=== PATIENT | female | born 1930 | race Caucasian/White ===

== ENCOUNTER 2016-08-08 15:04 | Emergency (ER) | payer MEDICARE ==
--- NOTE | 2016-08-08 15:33 | ERPHSYRPT ---
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 DENIES LOC, NECK PAIN, NUMBNESS, TINGLING OR WEAKNESS IN EXTREMITIES. PATIENT COMPLAINS OF BILATERAL KNEE PAIN WITH BRUISING. Occurred: just prior to arrival Reason for Fall: slipped Injuries/Pain Location: head, face, lower extremity Loss of Consciousness: no loss of consciousness Severity of Pain-Max: mild Severity of Pain-Current: mild Modifying Factors: Improves With: movement Associated Symptoms (Fall): extremity injury Allergies/Adverse Reactions: quinine [Quinine] Adverse Reaction (Mild, Verified 08/08/16 15:18) Nausea Home Medications: Acebutolol 200 mg [Sectral 200 MG] 200 mg PO BID 11/07/11 [History] Cetirizine HCl [Zyrtec] 10 mg PO DAILY 11/07/11 [History] Furosemide 20 mg [Lasix 20 mg] 20 mg PO DAILY 11/07/11 [History] Ranitidine HCl [zanTAC 150 MG TABLET] 150 mg PO BID 11/07/11 [History] Zolpidem Tartrate 10 mg [Ambien 10 MG] 10 mg PO HS PRN PRN 11/07/11 [History ] Albuterol 2.5 mg/3 ml Neb [Proventil 2.5 mg/3 ml Neb] 2 inh NEB BID [History] Alprazolam 0.25 mg [xanAX 0.25 MG] 0.25 mg PO Q4H PRN PRN 04/20/13 [ History] Aspirin 81 mg PO DAILY 04/20/13 [History] Ergocalciferol (Vitamin D2) [Vitamin D] 50,000 units PO WEEKLY 04/20/13 [History ] Fluoxetine HCl [Prozac] 20 mg PO DAILY 04/20/13 [History] Pravastatin Sodium 20 mg PO DAILY 04/20/13 [History] Tolterodine Tartrate [Detrol LA] 2 mg PO DAILY 04/20/13 [History] Warfarin Sodium [Coumadin] 6 mg PO DIRECTIONS UNKNOWN 04/20/13 [History] Alendronate Sodium 70 mg [Fosamax 70 MG] 1 tab PO WEEKLY 06/11/14 [History ] Potassium Chloride 10 Meq Tab* [Klor Con 10 MEQ] 10 meq PO BID 06/11/14 [ History] Warfarin Sodium 1 mg [Coumadin 1 MG] 5 mg PO DIRECTIONS UNKNOWN 06/11/14 [ History] Hx Tetanus, Diphtheria Vaccination/Date Given: Yes Hx Influenza Vaccination/Date Given: Yes Hx Pneumococcal Vaccination/Date Given: Yes Immunizations Up to Date: Yes - Review of Systems Constitutional: No Fever, No Chills Eyes: No Symptoms Ears, Nose, & Throat: No Symptoms Respiratory: No Symptoms, No Cough, No Dyspnea Cardiac: No Symptoms, No Chest Pain, No Edema, No Syncope Abdominal/Gastrointestinal: No Symptoms, No Abdominal Pain, No Nausea, No Vomiting, No Diarrhea Genitourinary Symptoms: No Symptoms, No Dysuria Musculoskeletal: Injury, Joint Pain, Joint Swelling, No Back Pain, No Neck Pain Skin: No Rash Neurological: No Dizziness, No Focal Weakness, No Sensory Changes Psychological: No Symptoms Endocrine: No Symptoms All Other Systems: Reviewed and Negative - Past Medical History Pertinent Past Medical History: Yes Neurological History: TIA ENT History: Cataracts Cardiac History: Congestive Heart Failure, High Cholesterol, Hypertension Respiratory History: COPD, Pulmonary Embolism Endocrine Medical History: Other Musculoskeletal History: Arthritis, Degenerative Disk Disease GI Medical History: GERD History: Other Psycho-Social History: Anxiety, Depression Female Reproductive Disorders: No Pertinent History Other Medical History: THYROID NODULES, URINARY INCONTINENCE - Past Surgical History Past Surgical History: Yes Neuro Surgical History: No Pertinent History Cardiac: No Pertinent History Respiratory: No Pertinent History Gastrointestinal: Cholecystectomy, Hernia Repair Genitourinary: No Pertinent History Musculoskeletal: Joint Replacement, Orthopedic Surgery Female Surgical History: No Pertinent History Other Surgical History: LOWER BACK, CONNIE FEET, CONNIE KNEES, CATARACT REMOVAL, TONSILLECTOMY - Social History Smoking Status: Never smoker Exposure to second hand smoke: No Drug Use: none Patient Lives Alone: Yes - Female History Hx Now: No - Nursing Vital Signs Nursing Vital Signs: Initial Vital Signs Temperature 97.6 F Temperature Source Oral Pulse Rate 80 Respiratory Rate 22 Blood Pressure [Left Arm] 148/77 Blood Pressure [Right Arm] 147/73 Pain Intensity 0 - [place] Coma Score Best Eye Response (Joyce): (4) open spontaneously Best Verbal Response ([place]): (5) oriented Best Motor Response (Joyce): (6) obeys commands [place] Total: 15 - Physical Exam General Appearance: no apparent distress, alert Head Injury: contusions, swelling, tenderness (2CM X 2.5CM LEFT SUPERIOR FOREHEAD SWELLING WITH SLIGHT ECCHYMOSIS) Eye Exam: PERRL/EOMI ENT Exam: airway nml Neck Exam: normal inspection, No tenderness Respiratory/Chest Exam: normal breath sounds, No chest tenderness, No respiratory distress Cardiovascular Exam: normal heart sounds, regular rate/rhythm Gastrointestinal Exam: soft, No tenderness, No distention, No guarding, No ecchymosis Back Exam: normal inspection, No vertebral tenderness Extremity Exam: normal range of motion, pelvis stable, swelling (BILATERAL KNEE TENDERNESS, RIGHT MEDIAL/LATERAL FEMORAL CONDYLE SWELLING AND ECCHYMOSIS, FROM WITH PAIN, LEFT KNEE ECCHYMOSIS WITH MINIMAL SWELLING OVER ECCHYMOSIS, BILAT PEDIS PULSES 2+), tenderness, No deformities Peripheral Pulses: carotid (R): 2+, carotid (L): 2+, femoral (R): 2+, femoral (L ): 2+, dorsalis-pedis (R): 2+, dorsalis-pedis (L): 2+ Neurologic Exam: alert, oriented x 3, cooperative, sensation nml, No motor deficits Skin Exam: normal color, warm, dry SpO2 Interpretation: normal SpO2: 95 Oxygen Delivery: Room Air - Radiology Exams Right Knee X-ray Interpretation: Discussed w/ radiologist (MILD OSTEOPENIA, TOTAL KNEE, ARTHROPLASTY WITH INTACT PROTHESIS, ARTICULATION, NO OTHER BONY, ARTICULAR, OR SOFT TISSUE ABNORMALITIES) Left Knee X-ray Interpretation: Interpreted by me (NO FRACTURE OR DISLOCATION, TOTAL KNEE PROSTHESIS INTACT) Right Ankle X-ray Interpretation: Discussed w/ radiologist (MILD OSTEOPENIA, NO FRACTURE OR DISLOCATION) - CT Exams Head CT Interpretation: Discussed w/radiologist (LEFT FRONTAL SCALP HEMATOMA, NO ACUTE INTRACRANIAL ABNORMALTIES OR FRACTURE) Maxillofacial Bones CT Interpretation: Discussed w/radiologist (LEFT FRONTAL SCALP HEMATOMA WITHOUT FRACTURE) Ordered Tests: Active Orders 24 hr Category Date Time Status ANKLE (3 VIEWS) Stat Exams 08/08/16 15:31 Completed FACIAL BONES WO CONTRAST [CT] Stat Exams 08/08/16 15:30 Completed HEAD WITHOUT CONTRAST [CT] Stat Exams 08/08/16 15:24 Completed KNEE (3 VIEWS) Stat Exams 08/08/16 15:31 Taken KNEE (3 VIEWS) Stat Exams 08/08/16 15:32 Completed BMP Stat Lab 08/08/16 15:33 Completed CBC W DIFF Stat Lab 08/08/16 15:33 Completed PT INR [PROTIME WITH INR] Stat Lab 08/08/16 15:36 Completed Lab/Rad Data: Laboratory Result Diagrams 08/08/16 15:33 08/08/16 15:33 Laboratory Results 08/08/16 08/08/16 08/08/16 Range/Units 15:36 15:33 15:33 WBC 6.4 (4.0-10.5) K/mm3 RBC 4.80 (4.1-5.4) M/mm3 Hgb 14.8 (12.0-16.0) gm/dl Hct 45.9 (35-47) % MCV 95.6 (78-100) fl MCH 30.8 (26-32) pg MCHC 32.2 (32-36) g/dl RDW 14.5 H (11.5-14.0) % Plt Count 311 (150-450) K/mm3 MPV 8.9 (6-9.5) fl Gran % 72.6 H (36.0-66.0) % Lymphocytes % 16.8 L (24.0-44.0) % Monocytes % 8.6 (0.0-12.0) % Eosinophils % 1.4 (0.00-5.0) % Basophils % 0.6 (0.0-0.4) % Basophils # 0.04 (0-0.4) INR 2.19 (0.8-3.0) Sodium 142 (136-145) mEq/L Potassium 4.3 (3.5-5.1) mEq/L Chloride 106 (98-107) mEq/L Carbon Dioxide 23.8 (21-32) mEq/L Anion Gap 16.0 H (5-15) MEQ/L BUN 22 H (9-20) mg/dL Creatinine 1.48 H (0.55-1.30) mg/dl Estimated GFR 36 ML/MIN Glucose 108 (70-110) MG/DL Calcium 8.9 (8.5-10.1) mg/dL - Progress Progress: pain not gone completely Counseled pt/family regarding: diagnosis, need for follow-up, rad results - Departure Time of Disposition: 17:07 Departure Disposition: Home Clinical Impression: FOREHEAD CONTUSION, BILATERAL KNEE CONTUSION Condition: Stable Critical Care Time: No Referrals: SYED HURLEY [Primary Care Provider] - Additional Instructions: FOLLOW HEAD INJURY INSTRUCTIONS. APPLY ICE OVER FOREHEAD AND KNEE SWELLING EVERY 4 HOURS, 30 MINUTES FOR 48 HOURS. TYLENOL EVERY 4 HOURS FOR PAIN DISCOMFORT.
[2016-08-08 15:52] LABS: BASOPHIL % 0.6 % (0.0-0.4); Eosinophil % 1.4 % (0.00-5.0); Granulocytes % 72.6 % (36.0-66.0); Lymphocytes % 16.8 % (24.0-44.0); Mean Cell Volume 95.6 fl (78-100); Mean Corpuscular Hemoglobin 30.8 pg (26-32); Mean Platelet Volume 8.9 fl (6-9.5); Monocytes % 8.6 % (0.0-12.0); Platelet Count 311 K/mm3 (150-450); Red Cell Distribution Width 14.5 % (11.5-14.0); White Blood Count 6.4 K/mm3 (4.0-10.5)
[2016-08-08 15:53] LABS: INR 2.19 (0.8-3.0)
[2016-08-08 15:55] LABS: Carbon Dioxide 23.8 mEq/L (21-32); Potassium 4.3 mEq/L (3.5-5.1)
--- NOTE | 2016-08-08 16:24 | XRAY ---
Indication: Left-sided injury following fall. Multiple contiguous axial images obtained through the facial bones. Sagittal and coronal reformatted images obtained. Comparison: None There are a few bilateral dental amalgams producing beam artifact limiting these levels. Small left frontal scalp hematoma. No acute fracture or suspicious bone lesions. Orbits including roof, arango, and floors intact. Remaining visualized noncontrasted soft tissues unremarkable. Paranasal sinuses are clear. Impression: Left frontal scalp hematoma. No acute facial bone fracture. CTDI 59.47
--- NOTE | 2016-08-08 16:27 | XRAY ---
Indication: Left-sided injury following fall. Multiple contiguous axial images obtained through the head without contrast. Comparison: None Minimal periventricular degenerative microischemia bilaterally. No acute intracranial hemorrhage, abnormal extra-axial fluid collection, or mass effect. Fourth ventricle is midline without hydrocephalus. Bony calvarium intact. Small left frontal scalp hematoma. Visualized paranasal sinuses and mastoid air cells are clear. Impression: Left frontal scalp hematoma. No acute intracranial abnormalities or fracture. Minimal degenerative microvascular ischemia within normal limits. CTDI 50.00
--- NOTE | 2016-08-08 16:30 | XRAY ---
Indication: Pain following fall. Comparison: None 3 views of the right ankle demonstrates mild osteopenia, mild midfoot degenerative changes, and tiny benign posterior soft tissue calcification in the lower leg. No other bony, articular, or soft tissue abnormalities.
--- NOTE | 2016-08-08 16:31 | XRAY ---
Indication: Pain following fall. Comparison: July 17, 2012. 3 views of the right knee again demonstrates mild osteopenia and total knee arthroplasty with intact prosthesis/articulation. No other bony, articular, or soft tissue abnormalities.
[2016-08-08 17:00] VITALS: BP 111/74; PULSE 77
[2016-08-08 17:04] VITALS: O2SAT 95
--- NOTE | 2016-08-14 11:48 | XRAY ---
Indication: Pain following fall. Comparison: April 20, 2013. 3 views of the left knee again demonstrates osteopenia, total knee arthroplasty with intact prosthesis/articulation, and tiny soft tissue calcification anterior to the tibial tuberosity. No new/acute findings.
== END 2016-08-08 17:17 | disposition home or self-care (01) ==
LOC: ED 15:04
DX: S00.83XA Contusion of other part of head, initial encounter (principal); S80.02XA Contusion of left knee, initial encounter; S80.01XA Contusion of right knee, initial encounter; W18.39XA Other fall on same level, initial encounter; Z79.899 Other long term (current) drug therapy; Z79.01 Long term (current) use of anticoagulants
CPT/HCPCS: 36415; 70450; 70486; 73562; 73610; 80048; 85025; 85610; 99284

== ENCOUNTER 2019-04-23 21:12 | Observation (INO) | payer MEDICARE ==
[2019-04-23] MEDS ORDERED: Zofran 4 MG/2 ML VIAL ONE ×2 (22:04→22:08)
[2019-04-23] MEDS ORDERED: Zofran 4 MG/2 ML VIAL IV ONE (22:04)
[2019-04-23] MEDS ORDERED: MORPHINE SULFATE 4 MG INJ IV ONE (22:08)
[2019-04-23] MEDS ORDERED: MORPHINE SULFATE 4 MG INJ ONE (22:13)
--- NOTE | 2019-04-23 22:18 | ERPHSYRPT ---
- History of Present Illness Time Seen by Provider: 04/23/19 21:50 Source: patient, EMS Patient Subjective Stated Complaint: pt states, "my right knee and and right thigh have been hurting today since 1300 and I got up once today and could hardly stand to get out of a chair, pain got worse throughout the day". Pt c/o Left arm hurting x6 days from shoulder to elbow". States, "its been popping alot lately". Triage Nursing Assessment: pt c/o rt knee pain, radiating up to rt hip. Started today around 1300, was unable to hardly bear any weight to stand up and pain has gotten worse throughout the day. Pt thinks swelling is worse that usual to the knee and down. Pt c/o lt shoulder pain down to the elbow x6 days as well. 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 He denies any fall or trauma. Pain is more muscular in the thigh. Patient reports swelling of the thigh and lower leg. She is concerned about getting another blood clot. Denies any fever or chills. She is also having left shoulder and arm pain for the last 1 week. Patient denies any chest pain palpitations or shortness of breath. No abdominal pain but has nausea because of pain. Patient reports generalized weakness and fatigue and is unable to ambulate. Occurred: this afternoon Quality: constant, sharpness Severity of Pain-Max: moderate Severity of Pain-Current: moderate Lower Extremities Pain: knee: right, thigh: right Modifying Factors: Improves With: movement Allergies/Adverse Reactions: quinine [Quinine] Adverse Reaction (Mild, Verified 04/23/19 21:33) Nausea Home Medications: Acebutolol 200 mg [Sectral 200 MG] 200 mg PO BID 11/07/11 [History] Furosemide 20 mg [Lasix 20 mg] 20 mg PO DAILY 11/07/11 [History] Ranitidine HCl [zanTAC 150 MG TABLET] 150 mg PO BID 11/07/11 [History] Zolpidem Tartrate 10 mg [Ambien 10 MG] 10 mg PO HS PRN PRN 11/07/11 [History ] Albuterol 2.5 mg/3 ml Neb [Proventil 2.5 mg/3 ml Neb] 2 inh NEB BID [History] Alprazolam 0.25 mg [xanAX 0.25 MG] 0.25 mg PO Q4H PRN PRN 04/20/13 [ History] Ergocalciferol (Vitamin D2) [Vitamin D] 50,000 units PO WEEKLY 04/20/13 [History ] Fluoxetine HCl [Prozac] 20 mg PO DAILY 04/20/13 [History] Pravastatin Sodium 20 mg PO DAILY 04/20/13 [History] Tolterodine Tartrate [Detrol LA] 2 mg PO DAILY 04/20/13 [History] Alendronate Sodium 70 mg [Fosamax 70 MG] 1 tab PO WEEKLY 06/11/14 [History ] Potassium Chloride 10 Meq Tab* [Klor Con 10 MEQ] 10 meq PO BID 06/11/14 [ History] Warfarin Sodium 1 mg [Coumadin 1 MG] 5 mg PO DAILY 06/11/14 [History] Hx Tetanus, Diphtheria Vaccination/Date Given: Yes Hx Influenza Vaccination/Date Given: Yes Hx Pneumococcal Vaccination/Date Given: Yes Immunizations Up to Date: Yes - Review of Systems Constitutional: No Symptoms Eyes: No Symptoms Ears, Nose, & Throat: No Symptoms Respiratory: No Symptoms Cardiac: No Symptoms Abdominal/Gastrointestinal: Nausea Genitourinary Symptoms: No Symptoms Musculoskeletal: Arthralgias, Myalgias Skin: No Symptoms Neurological: No Symptoms Psychological: No Symptoms Endocrine: No Symptoms Hematologic/Lymphatic: No Symptoms Immunological/Allergic: No Symptoms - Past Medical History Pertinent Past Medical History: Yes Neurological History: TIA ENT History: Cataracts Cardiac History: Congestive Heart Failure, High Cholesterol, Hypertension Respiratory History: COPD, Pulmonary Embolism Endocrine Medical History: Other Musculoskeletal History: Arthritis, Degenerative Disk Disease GI Medical History: GERD History: Other Psycho-Social History: Anxiety, Depression Female Reproductive Disorders: No Pertinent History Other Medical History: THYROID NODULES, URINARY INCONTINENCE - Past Surgical History Past Surgical History: Yes Neuro Surgical History: No Pertinent History Cardiac: No Pertinent History Respiratory: No Pertinent History Gastrointestinal: Cholecystectomy, Hernia Repair Genitourinary: No Pertinent History Musculoskeletal: Joint Replacement, Orthopedic Surgery Female Surgical History: No Pertinent History Other Surgical History: LOWER BACK, CONNIE FEET, CONNIE KNEES, CATARACT REMOVAL, TONSILLECTOMY - Social History Smoking Status: Never smoker Exposure to second hand smoke: No Drug Use: none Patient Lives Alone: Yes - Female History Hx Now: No - Nursing Vital Signs Nursing Vital Signs: Initial Vital Signs Temperature 96.6 F 04/23/19 21:18 Pulse Rate 79 04/23/19 21:18 Respiratory Rate 22 04/23/19 21:18 Blood Pressure 171/78 04/23/19 21:18 O2 Sat by Pulse Oximetry 97 04/23/19 21:18 Pain Scale Pain Intensity [Right Knee] 10 Pain Intensity 8 - Physical Exam General Appearance: mild distress Eyes, Ears, Nose, Throat Exam: normal ENT inspection Neck Exam: normal inspection Cardiovascular/Respiratory Exam: chest non-tender, normal breath sounds, regular rate/rhythm Gastrointestinal/Abdominal Exam: non-tender, soft, no organomegaly Back Exam: normal inspection, muscle spasm, No rash Hips Exam: bilateral: non-tender, normal inspection, normal range of motion Legs Exam: right leg: pain, soft tissue tenderness, swelling, left leg: non- tender, normal inspection, bilateral leg: no evidence of injury Knees Exam: right knee: bone tenderness, joint effusion, pain, soft tissue tenderness, swelling, left knee: non-tender, normal inspection, normal range of motion, bilateral knee: no evidence of injury Ankle Exam: right ankle: pain, soft tissue tenderness, swelling, bilateral ankle : non-tender, normal range of motion Neuro/Tendon Exam: normal sensation, normal motor functions Mental Status Exam: alert, oriented x 3, cooperative Skin Exam: normal color, warm SpO2 Interpretation: normal SpO2: 97 O2 Delivery: Room Air - Course Nursing assessment & vital signs reviewed: Yes EKG Interpreted by Me: RATE (77), NORMAL AXIS, Non-specific ST Changes Ordered Tests: Active Orders 24 hr Category Date Time Status S Iron Worker STAT Care 04/23/19 21:29 Active EKG-ER Only STAT Care 04/23/19 21:29 Active IV Insertion STAT Care 04/23/19 21:29 Active CHEST 1 VIEW (PORTABLE) Stat Exams 04/23/19 22:43 Taken HIP UNI (2V) INCL PEL IF DONE Stat Exams 04/23/19 23:56 Taken KNEE (3 VIEWS) Stat Exams 04/23/19 23:57 Taken VENOUS UNILAT/LIMITED EXTREMIT [US] Stat Exams 04/23/19 23:07 Taken CBC W DIFF Stat Lab 04/23/19 22:25 Completed CMP Stat Lab 04/23/19 22:25 Completed LIPASE Stat Lab 04/23/19 23:58 Received NT PRO BNP Stat Lab 04/23/19 22:25 Completed PROTIME WITH INR Stat Lab 04/23/19 22:25 Completed TROPONIN Q3H Lab 04/23/19 22:25 Completed TROPONIN Q3H Lab 04/24/19 01:15 Ordered TROPONIN Q3H Lab 04/24/19 04:15 Ordered TROPONIN Q3H Lab 04/24/19 07:15 Ordered TROPONIN Q3H Lab 04/24/19 10:15 Ordered Medication Summary Generic Name Dose Route Start Last Admin Trade Name Freq PRN Reason Stop Dose Admin Sodium Chloride 500 mls @ 500 mls/hr 04/24/19 00:02 Sodium Chloride 0.9% 500 Ml IV 04/24/19 01:01 .Q1H ONE Discontinued Medications Generic Name Dose Route Start Last Admin Trade Name Freq PRN Reason Stop Dose Admin Sodium Chloride Confirm 04/24/19 00:03 Sodium Chloride 0.9% 500 Ml Administered 04/24/19 00:04 Dose 500 mls @ ud IV .STK-MED ONE Morphine Sulfate 4 mg 04/23/19 22:08 04/23/19 22:18 Morphine Sulfate 4 Mg Inj IV 04/23/19 22:09 4 mg STAT ONE Administration Morphine Sulfate Confirm 04/23/19 22:13 Morphine Sulfate 4 Mg Inj Administered 04/23/19 22:14 Dose 4 mg .ROUTE .STK-MED ONE Morphine Sulfate 4 mg 04/24/19 00:01 Morphine Sulfate 4 Mg Inj IV 04/24/19 00:02 STAT ONE Morphine Sulfate Confirm 04/24/19 00:03 Morphine Sulfate 4 Mg Inj Administered 04/24/19 00:04 Dose 4 mg .ROUTE .STK-MED ONE Ondansetron HCl 4 mg 04/23/19 22:04 04/23/19 22:11 Zofran 4 Mg/2 Ml Vial IV 04/23/19 22:05 4 mg STAT ONE Administration Ondansetron HCl Confirm 04/23/19 22:04 Zofran 4 Mg/2 Ml Vial Administered 04/23/19 22:05 Dose 4 mg .ROUTE .STK-MED ONE Ondansetron HCl Confirm 04/23/19 22:08 Zofran 4 Mg/2 Ml Vial Administered 04/23/19 22:09 Dose 4 mg .ROUTE .STK-MED ONE Ondansetron HCl 4 mg 04/24/19 00:02 Zofran 4 Mg/2 Ml Vial IV 04/24/19 00:03 STAT ONE Ondansetron HCl Confirm 04/24/19 00:03 Zofran 4 Mg/2 Ml Vial Administered 04/24/19 00:04 Dose 4 mg .ROUTE .STK-MED ONE Lab/Rad Data: Laboratory Result Diagrams 04/23/19 22:25 04/23/19 22:25 Laboratory Results 04/23/19 04/23/19 04/23/19 Range/Units 22:25 22:25 22:25 WBC (4.0-10.5) K/mm3 RBC (4.1-5.4) M/mm3 Hgb (12.0-16.0) gm/dl Hct (35-47) % MCV (78-100) fl MCH (26-32) pg MCHC (32-36) g/dl RDW (11.5-14.0) % Plt Count (150-450) K/mm3 MPV (7.5-11.0) fl Gran % (36.0-66.0) % Eos # (Auto) (0-0.5) Absolute Lymphs (auto) (1.0-4.6) Absolute Monos (auto) (0.0-1.3) Lymphocytes % (24.0-44.0) % Monocytes % (0.0-12.0) % Eosinophils % (0.00-5.0) % Basophils % (0.0-0.4) % Absolute Granulocytes (1.4-6.9) Basophils # (0-0.4) PT 30.5 H (9.95-12.35) SECONDS INR 2.65 (0.8-3.0) Sodium 138 (137-145) mmol/L Potassium 4.3 (3.5-5.1) mmol/L Chloride 105 (98-107) mmol/L Carbon Dioxide 27 (22-30) mmol/L Anion Gap 10.3 (5-15) MEQ/L BUN 29 H (7-17) mg/dL Creatinine 1.45 H (0.52-1.04) mg/dL Estimated GFR 36.2 ML/MIN Glucose 138 H (74-106) mg/dL Calcium 9.2 (8.4-10.2) mg/dL Total Bilirubin 0.60 (0.2-1.3) mg/dL AST 22 (14-36) U/L ALT 14 (0-35) U/L Alkaline Phosphatase 113 (38-126) U/L Troponin I < 0.012 (0.000-0.034) ng/mL NT-Pro-B Natriuret Pep 89.4 (0-1800) pg/mL Serum Total Protein 6.7 (6.3-8.2) g/dL Albumin 3.8 (3.5-5.0) g/dL 04/23/19 Range/Units 22:25 WBC 8.1 (4.0-10.5) K/mm3 RBC 4.49 (4.1-5.4) M/mm3 Hgb 13.7 (12.0-16.0) gm/dl Hct 42.8 (35-47) % MCV 95.3 (78-100) fl MCH 30.5 (26-32) pg MCHC 32.0 (32-36) g/dl RDW 15.2 H (11.5-14.0) % Plt Count 250 (150-450) K/mm3 MPV 8.9 (7.5-11.0) fl Gran % 80.2 H (36.0-66.0) % Eos # (Auto) 0.08 (0-0.5) Absolute Lymphs (auto) 0.85 L (1.0-4.6) Absolute Monos (auto) 0.64 (0.0-1.3) Lymphocytes % 10.5 L (24.0-44.0) % Monocytes % 7.9 (0.0-12.0) % Eosinophils % 1.0 (0.00-5.0) % Basophils % 0.4 (0.0-0.4) % Absolute Granulocytes 6.47 (1.4-6.9) Basophils # 0.03 (0-0.4) PT (9.95-12.35) SECONDS INR (0.8-3.0) Sodium (137-145) mmol/L Potassium (3.5-5.1) mmol/L Chloride (98-107) mmol/L Carbon Dioxide (22-30) mmol/L Anion Gap (5-15) MEQ/L BUN (7-17) mg/dL Creatinine (0.52-1.04) mg/dL Estimated GFR ML/MIN Glucose (74-106) mg/dL Calcium (8.4-10.2) mg/dL Total Bilirubin (0.2-1.3) mg/dL AST (14-36) U/L ALT (0-35) U/L Alkaline Phosphatase (38-126) U/L Troponin I (0.000-0.034) ng/mL NT-Pro-B Natriuret Pep (0-1800) pg/mL Serum Total Protein (6.3-8.2) g/dL Albumin (3.5-5.0) g/dL - Progress Progress: improved, pain not gone completely, re-examined Progress Note: 04/24/19 00:07 88 years old is evaluated for right knee and leg pain. She is given pain medication and Zofran. Ultrasound did not show any obvious blood clot/DVT and INR is therapeutic. I have obtained x-rays which did not show any fracture dislocation of the knee joint/hardware. She is able to move her leg better after pain medication. EKG did not show any acute ischemic changes and unremarkable work-up including troponin. Chest x-ray with no focal pneumonia. Patient is not in any distress on reevaluation. Patient lives by herself and is unable to ambulate because of pain and generalized weakness. Discussed with Dr. Millard and patient is being admitted for observation. Discussed with : Emmett Will see patient in: hospital (observation) Counseled pt/family regarding: lab results, diagnosis, need for follow-up, rad results - Departure Departure Disposition: Home Clinical Impression: General weakness Lower extremity pain Qualifiers: Laterality: right Qualified Code(s): M79.604 - Pain in right leg Condition: Stable Critical Care Time: No Critical Care Time(excluding separately billable procedures): Critical 30-74 mins Referrals: SYED HURLEY [Primary Care Provider] -
[2019-04-23 22:31] LABS: Absolute Neutrophil Ct (ANC) 6.47 (1.4-6.9); BASOPHIL % 0.4 % (0.0-0.4); Basophil (Absolute #) 0.03 (0-0.4); Eosinophil (Absolute #) 0.08 (0-0.5); Hematocrit 42.8 % (35-47); Hemoglobin 13.7 gm/dl (12.0-16.0); Lymphocyte (Absolute #) 0.85 (1.0-4.6); Lymphocytes % 10.5 % (24.0-44.0); Mean Cell Volume 95.3 fl (78-100); Mean Corpuscular Hemoglobin 30.5 pg (26-32); Mean Platelet Volume 8.9 fl (7.5-11.0); Monocyte (Absolute #) 0.64 (0.0-1.3); Monocytes % 7.9 % (0.0-12.0); Neutrophil % 80.2 % (36.0-66.0); Platelet Count 250 K/mm3 (150-450); Red Blood Count 4.49 M/mm3 (4.1-5.4); Red Cell Distribution Width 15.2 % (11.5-14.0); White Blood Count 8.1 K/mm3 (4.0-10.5)
[2019-04-23 22:37] LABS: INR 2.65 (0.8-3.0); PROTIME 30.5 SECONDS (9.95-12.35)
[2019-04-23 22:50] LABS: ALBUMIN 3.8 g/dL (3.5-5.0); ANION GAP 10.3 MEQ/L (5-15); BILIRUBIN,TOTAL 0.6 mg/dL (0.2-1.3); Calcium 9.2 mg/dL (8.4-10.2); Creatinine 1 1.45 mg/dL (0.52-1.04); NT PRO BNP 89.4 pg/mL (0-1800); Potassium 4.3 mmol/L (3.5-5.1); Total Protein 6.7 g/dL (6.3-8.2)
[2019-04-24] MEDS ORDERED: MORPHINE SULFATE 4 MG INJ IV ONE (00:01)
[2019-04-24] MEDS ORDERED: Sodium Chloride 0.9% 500 ML 500 ML IV ONE ×2 (00:02→00:03)
[2019-04-24] MEDS ORDERED: Zofran 4 MG/2 ML VIAL IV ONE (00:02)
[2019-04-24] MEDS ORDERED: Zofran 4 MG/2 ML VIAL ONE (00:03)
[2019-04-24] MEDS ORDERED: MORPHINE SULFATE 4 MG INJ ONE ×2 (00:03→06:42)
[2019-04-24] MEDS ORDERED: Zofran 4 MG/2 ML VIAL IV PRN (00:37)
[2019-04-24] MEDS ORDERED: HUMALOG SQ PRN (00:37)
[2019-04-24 05:13] LABS: BASOPHIL % 0.3 % (0.0-0.4); Basophil (Absolute #) 0.03 (0-0.4); Eosinophil (Absolute #) 0 (0-0.5); Hematocrit 41.5 % (35-47); Lymphocyte (Absolute #) 0.58 (1.0-4.6); Lymphocytes % 6.8 % (24.0-44.0); Mean Cell Volume 96.7 fl (78-100); Mean Corpuscular Hemoglobin 30.3 pg (26-32); Mean Corpuscular Hgb Concent. 31.3 g/dl (32-36); Mean Platelet Volume 9.1 fl (7.5-11.0); Monocyte (Absolute #) 0.67 (0.0-1.3); Monocytes % 7.8 % (0.0-12.0); Neutrophil % 85.1 % (36.0-66.0); Platelet Count 248 K/mm3 (150-450); Red Blood Count 4.29 M/mm3 (4.1-5.4); Red Cell Distribution Width 15.1 % (11.5-14.0); White Blood Count 8.6 K/mm3 (4.0-10.5)
[2019-04-24 05:18] LABS: ALBUMIN 3.6 g/dL (3.5-5.0); ANION GAP 8.5 MEQ/L (5-15); BILIRUBIN,TOTAL 0.5 mg/dL (0.2-1.3); Calcium 8.7 mg/dL (8.4-10.2); Creatinine 1 1.32 mg/dL (0.52-1.04); Potassium 4.4 mmol/L (3.5-5.1); Total Protein 6.3 g/dL (6.3-8.2)
[2019-04-24] MEDS ORDERED: MORPHINE SULFATE 4 MG INJ IV PRN (06:39)
[2019-04-24] MEDS ORDERED: TYLENOL 325 MG PO PRN (07:10)
[2019-04-24] MEDS ORDERED: NORCO 5/325 MG PO PRN (08:35)
--- NOTE | 2019-04-24 09:30 | HP ---
HISTORY OF PRESENT ILLNESS: This is an 88 year-old patient of mine who presented to the emergency department via ambulance with the fire department. She reports that she had some left shoulder pain for the past few days. She denies any falls. She reports she sleeps in her recliner which she likes to do but has to reach out to turn the heat up or down and has to stretch her arm quite a ways to do this. She reports she was having right knee pain and trouble getting up out of her chair with weakness and trouble standing. She usually uses a four-prong cane in her apartment, a walker when she comes out to the doctor's office and has a scooter that she uses to go get groceries when the weather is good. She reports she had some nausea last night in the hospital and vomiting. She had not had any at home. She was not sure if this was due to having the pain medicine. She has been getting morphine for her right knee and right hip pain. REVIEW OF SYSTEMS: She reports some dyspnea but said it is better. Vomiting here. No diarrhea. No constipation. No chest pain. No rashes. She reports some swelling above her right knee. MEDICATIONS: Please see the home medication reconciliation list which I reviewed. ALLERGIES: QUININE. PAST MEDICAL HISTORY: Congestive heart failure. She sees Dr. Lee. Chronic obstructive pulmonary disease. Thyroid nodule. History of pulmonary embolism in 2012. Deep venous thrombosis in 2012. History of transient ischemic attack, right thoracic outlet syndrome, hiatal hernia, back pain, osteoarthritis bilaterally of her lower extremities, cyst on her ovaries, seasonal allergies, stage III chronic kidney disease for which she sees Dr. Rubi for. PAST SURGICAL HISTORY: Back surgery. Cholecystectomy. Eye surgery. Both knees replaced. Surgery on both feet. Umbilical hernia repair. Thyroid surgery. Tonsillectomy. Colonoscopy 2009. SOCIAL HISTORY: She lives alone in the [facility]. She has a sister that helps with her care and has home health. PHYSICAL EXAMINATION: VITAL SIGNS: Temperature current 97.8F, temperature max 98.0F, heart rate 80, respiratory rate 20, blood pressure 140/68. Oxygen saturation 96% on 2 liters nasal cannula. GENERAL: The patient is a pleasant talkative lady lying in bed in no acute distress. She is morbidly obese. CVS: Heart has a regular rate and rhythm. No murmurs, gallops or rubs. CHEST: Clear to auscultation bilaterally. No crackles or wheezes. ABDOMEN: Obese, soft, nontender, nondistended with normal bowel sounds. EXTREMITIES: She has some mild swelling around her right knee with a well healed scar. Subjective tenderness superiorly. No clubbing, cyanosis or edema of her lower legs. SKIN: Warm, dry and intact. LABORATORY DATA AND TESTS: CBC within normal limits. Creatinine 1.3. Serial troponins have been negative. X-rays were taken. I do not have formal reports on all of those as yet. Per the emergency room doctor's report, the venous Doppler study was negative and no acute fractures. ASSESSMENT AND PLAN: 1) RIGHT KNEE PAIN WITH WEAKNESS: We will ask for PT to assess her and try to get her up to a chair to see if she is safe to return home or if she needs rehab somewhere. 2) LEFT SHOULDER PAIN: Most likely due to some tendonitis due to trying to reach for the heater. Will try to change her from IV morphine to pain medication by mouth. 3) HISTORY OF PULMONARY EMBOLISM: Will continue with her anticoagulation and check daily international normalized ratio. 4) GAIT INSTABILITY WITH WEAKNESS: Again, will have PT see her. 5) CONGESTIVE HEART FAILURE: Currently stable on her home medication. 6) HYPERTENSION: Currently stable on her home medication.
[2019-04-24] MEDS ORDERED: Miralax Powder 17GM PACKET PO PRN (10:46)
[2019-04-24] MEDS ORDERED: Ambien 10 MG PO PRN (10:46)
[2019-04-24] MEDS ORDERED: VENTOLIN COMMON CANISTER IH PRN (10:46)
[2019-04-24] MEDS ORDERED: SECTRAL 200 MG PO SCH (11:00)
[2019-04-24] MEDS ORDERED: xanAX 0.5 MG PO PRN (11:00)
[2019-04-24] MEDS ORDERED: NITRO-DUR 0.2 MG/HR TD SCH (11:00)
[2019-04-24] MEDS ORDERED: Colace 100 MG PO SCH (11:00)
[2019-04-24] MEDS ORDERED: VITAMIN D2 PO SCH (11:00)
[2019-04-24] MEDS ORDERED: LASIX 20 MG PO SCH (11:00)
[2019-04-24] MEDS ORDERED: Pepcid 20 MG PO SCH (11:15)
[2019-04-24] MEDS ORDERED: Ditropan XL 5 MG PO SCH (11:15)
[2019-04-24] MEDS ORDERED: MEDICATION INTERVENTION MC SCH (11:15)
[2019-04-24] MEDS ORDERED: Prozac 20 MG PO SCH (11:30)
[2019-04-24] MEDS ORDERED: CLARITIN 10 MG PO SCH (12:00)
--- NOTE | 2019-04-24 14:51 | XRAY ---
Exam: AP upright portable chest film from 04/23/2019. Comparison: Two-view chest from 01/25/2013. Indication: Arm pain, vomiting. Findings: The transverse heart size appears within normal limits. There is moderate tortuosity of the descending thoracic aorta representing no change. Mild chronic central bronchial wall thickening is seen. The remainder the tuan and mediastinal structures appears unremarkable. The lungs are adequately inflated. There is some mild linear scarring at the right lung base. No air space infiltrates, vascular congestion, pneumothorax, or pleural fluid is seen. No acute osseous process is seen. Impression: 1. There appears to be some central bronchial wall thickening and perhaps minimal linear scarring at the right lung base. 2. No infiltrates or other acute cardiopulmonary disease is seen.
--- NOTE | 2019-04-24 15:01 | XRAY ---
Exam: Doppler venous ultrasound examination of the right lower extremity from 04/23/2019. Indication: Right thigh/knee pain and edema. Findings: The examination of the deep veins of the right lower extremity was carried out in the usual manner with color flow images, grayscale images, and Doppler tracings. Normal transducer compression, color flow, and Doppler signal augmentation is seen within registered representative segments of the right common femoral vein, superficial femoral vein, profunda femoral vein, popliteal vein, tibial/peroneal trunk, and distal posterior tibial veins. No evidence of DVT is seen. Normal compression of the greater saphenous pain is seen with transducer compression. In addition, the technologist believed there was a complex area of increased echogenicity within the proximal to mid thigh which she thought was a hematoma. This is poorly seen. She describes it as posterior to the femoral vessels. This did not connect with the adjacent vessels with real-time scanning. The study was hampered by the patient's large size. Impression: 1. No sonographic or Doppler evidence of deep venous thrombosis within the right lower extremity is seen. 2. Incompletely evaluated complex area noted within the proximal to mid right thigh is believed to probably relate to a hematoma. This is separate from the femoral vessels. Assessment is limited due to the patient's large size.
--- NOTE | 2019-04-24 15:05 | XRAY ---
Exam: Right hip films including the pelvis from 04/23/2019. Indication: Right hip pain, rule out fracture, no known injury. Findings: 2 AP films of the pelvis and coned-down AP and oblique films of the right hip were obtained. Multilevel advanced degenerative disc disease is seen within the visualized lower lumbar spine. The pelvis reveals no fracture or dislocation. The urinary bladder is full. The right hip reveals no acute fracture or dislocation. The hip joint spaces reveal only minimal narrowing. Some cortical thickening is seen along the medial aspect of the proximal right femoral shaft. This appears chronic. Impression: 1. No acute fracture or dislocation is seen within the pelvis or right hip. 2. Multilevel advanced degenerative disc disease is seen at the visualized lower 4 lumbar interspace levels.
--- NOTE | 2019-04-24 15:09 | XRAY ---
Exam: 3 views of the right knee from 04/23/2019. Comparison: Right knee films from 08/08/2016. Indication: Right knee pain, no known injury, prior right knee joint replacement in 1982. Findings: AP, shallow oblique, and crosstable lateral views of the right knee were obtained. I again see evidence of a right knee joint replacement. Prosthetic components adjacent to the distal right femur and proximal right tibia appear unremarkable. No prosthesis loosening is seen. There is a small chronic spur at the superior posterior margin of the right patella. Incidentally, there is a fairly large suprapatellar joint effusion/hemarthrosis on the crosstable lateral view. No fracture or dislocation is seen. Correlate clinically. Impression: 1. Status post right knee arthroplasty representing no change from 08/08/2016. I see no evidence of prosthesis loosening. 2. There is no acute right knee fracture or dislocation. 3. However, the crosstable lateral view reveals a moderately large suprapatellar joint effusion/hemarthrosis. Correlate clinically. This is new from 08/08/2016.
[2019-04-24 15:31] VITALS: BP 124/70; PULSE 72; O2SAT 97
--- NOTE | 2019-04-24 15:57 | PCM.DCORD ---
- Discharge Discharge Date: 04/24/19 Disposition: DC TO [facility] Condition: Fair Prescriptions: New Alprazolam 0.5 mg PO TID PRN #90 tablet PRN Reason: Anxiety Hydrocodone/Acetaminophen [Hydrocodone-Acetamin 5-325 mg] 1 each PO Q4H PRN # 35 tablet MDD 6 PRN Reason: Pain Acetaminophen 325 mg [Tylenol 325 mg] 650 mg PO Q4H PRN PRN tablet PRN Reason: Pain And/Or Fever Continue Docusate Sodium 100 mg [Colace 100 MG] 100 mg PO BID #0 capsule Ranitidine HCl [zanTAC 150 MG TABLET] 150 mg PO BID Acebutolol 200 mg [Sectral 200 MG] 200 mg PO BID Furosemide 20 mg [Lasix 20 mg] 20 mg PO DAILY Fluoxetine HCl [Prozac] 20 mg PO DAILY Tolterodine Tartrate [Detrol LA] 2 mg PO DAILY Pravastatin Sodium 20 mg PO HS Warfarin Sodium 1 mg [Coumadin 1 MG] 5 mg PO DAILY Alendronate Sodium 70 mg [Fosamax 70 MG] 1 tab PO WEEKLY Albuterol Common Canister [Ventolin Common Canister] 2 puff IH Q4HPRN PRN PRN Reason: Shortness Of Breath Calcifediol [Rayaldee] 30 mcg PO DAILY Polyethylene Glycol 3350 17 gm [Miralax Powder 17GM PACKET] 17 gm PO DAILY PRN PRN PRN Reason: Constipation Nitroglycerin 0.2 mg/Hr [Nitro-Dur 0.2 mg/Hr] 0.2 mg TD DAILY Fluticasone Propionate [Flonase NASAL] 1 spray NS DAILY Fexofenadine HCl 180 mg PO DAILY Fluoxetine HCl 40 mg PO DAILY Zolpidem Tartrate 10 mg [Ambien 10 MG] 10 mg PO HS PRN PRN 30 Days tablet PRN Reason: Insomnia Discontinued Alprazolam 0.5 mg [xanAX 0.5 MG] 0.5 mg PO TIDPRN Additional Instructions: Ice to knee for 20 minutes at a time 3 times a day if patient would like; PT/OT to evaluate and treat. Follow up with: SYED HURLEY [Primary Care Provider] - 1 Week
[2019-04-24] MEDS ORDERED: Coumadin 5 MG PO SCH (18:00)
[2019-04-24] MEDS ORDERED: ZOCOR 20MG PO SCH (22:00)
[2019-04-24] MEDS ORDERED: NON-FORMULARY ITEM (Pravastatin Sodium [Pravastatin Sodium] 20 MG) PO SCH (22:00)
[2019-04-24] MEDS ORDERED: RANITIDINE HCL 150 MG PO SCH (22:00)
[2019-04-25] MEDS ORDERED: TOLTERODINE TARTRATE 2 MG PO SCH (10:00)
[2019-04-25] MEDS ORDERED: Coumadin 1 MG PO SCH (10:00)
[2019-04-25] MEDS ORDERED: Flonase NASAL NS SCH (10:00)
[2019-04-29] MEDS ORDERED: Fosamax 70 MG PO SCH (06:00)
== END 2019-04-24 16:45 ==
LOC: ED 21:12 → MED SURG 04-24 00:25
PROVIDERS: ADMIT Internal Medicine; ATTEND Internal Medicine
DX: M25.561 Pain in right knee (principal); M25.512 Pain in left shoulder; M25.551 Pain in right hip; J44.9 Chronic obstructive pulmonary disease, unspecified; I13.0 Hypertensive heart and chronic kidney disease with heart failure and stage 1 through stage 4 chronic kidney disease, or unspecified chronic kidney disease; N18.3 Chronic kidney disease, stage 3 (moderate); I50.9 Heart failure, unspecified; R53.1 Weakness; Z86.711 Personal history of pulmonary embolism; R26.81 Unsteadiness on feet; Z79.01 Long term (current) use of anticoagulants; Z79.899 Other long term (current) drug therapy; Z86.73 Personal history of transient ischemic attack (TIA), and cerebral infarction without residual deficits
CPT/HCPCS: 36000; 36415; 71045; 73502; 73562; 80053; 82962; 83036; 83690; 83880; 84484; 85025; 85610; 93005; 93041; 93971; 94762; 96374; 96375; 96376; 97161; 99284; 99291; G0378; J2270; J2405; A9270-GY

== ENCOUNTER 2019-12-06 19:53 | Observation (INO) | payer MEDICARE ==
--- NOTE | 2019-12-06 20:06 | ERPHSYRPT ---
- History of Present Illness Time Seen by Provider: 12/06/19 20:00 Source: patient, EMS Exam Limitations: no limitations Physician History: 89 yr old female fell 2 weeks ago with pain left hip at that time now resolved but now has pain right hip and knee without additional trauma and unable to bear weight. also notes bilaterla leg swelling and right LE has area of erythema. Hx DVT/PE on AC last INR 2.[address] Man who referred her her. No head injury or trauma to head or headaches. Now full ROM on left without pain. abd soft nontender without peritoneal signs , chest nontender. neuro vasc intact distally and neuro exam normal Method of Injury: fell Occurred: days ago Quality: constant Severity of Pain-Max: moderate Severity of Pain-Current: moderate Lower Extremities Pain: hip: right, knee: right Modifying Factors: Improves With: immobilization, movement Associated Symptoms: unable to bear weight Allergies/Adverse Reactions: quinine [Quinine] Adverse Reaction (Mild, Verified 12/06/19 20:06) Nausea back pain Home Medications: Acebutolol 200 mg [Sectral 200 MG] 200 mg PO BID 11/07/11 [History] Furosemide 20 mg [Lasix 20 mg] 20 mg PO DAILY 11/07/11 [History] Fluoxetine HCl [Prozac] 20 mg PO DAILY 04/20/13 [History] Pravastatin Sodium 20 mg PO HS 04/20/13 [History] Tolterodine Tartrate [Detrol LA] 2 mg PO DAILY 04/20/13 [History] Alendronate Sodium 70 mg [Fosamax 70 MG] 1 tab PO WEEKLY 06/11/14 [History] Warfarin Sodium 1 mg [Coumadin 1 MG] 5 mg PO DAILY 06/11/14 [History] Albuterol Common Canister [Ventolin Common Canister] 2 puff IH Q4HPRN PRN 04/24/19 [History] Calcifediol [Rayaldee] 30 mcg PO DAILY 04/24/19 [History] Fexofenadine HCl 180 mg PO DAILY 04/24/19 [History] Fluoxetine HCl 40 mg PO DAILY 04/24/19 [History] Fluticasone Propionate [Flonase NASAL] 1 spray NS DAILY 04/24/19 [History] Nitroglycerin 0.2 mg/Hr [Nitro-Dur 0.2 mg/Hr] 0.2 mg TD DAILY 04/24/19 [History] Polyethylene Glycol 3350 17 gm [Miralax Powder 17GM PACKET] 17 gm PO DAILY PRN PRN 04/24/19 [History] Ascorbic Acid [Vitamin C with Shanita Hips] 1 ea DAILY 12/06/19 [History] Calcium No.1/D3/B6/FA/B12/Aloe [Vitamin D3-Aloe 1,000 Unit Tab] 1 ea DAILY 12/06/19 [History] Mv,Calcium,Min/Iron/Folic/Vitk [Multi For Her Tablet] 1 ea DAILY 12/06/19 [Hist ory] PANTOPRAZOLE 40 mg Tablet [Protonix 40MG Tablet] 1 ea DAILY 12/06/19 [History] Simethicone 80 mg [Mylicon 80MG] 1 ea BID 12/06/19 [History] Hx Tetanus, Diphtheria Vaccination/Date Given: Yes Hx Influenza Vaccination/Date Given: Yes Hx Pneumococcal Vaccination/Date Given: Yes - Review of Systems Constitutional: No Fever, No Chills Eyes: No Symptoms Ears, Nose, & Throat: No Symptoms Respiratory: No Cough, No Dyspnea Cardiac: No Chest Pain, No Edema, No Syncope Abdominal/Gastrointestinal: No Abdominal Pain, No Nausea, No Vomiting, No Diarrh ea Genitourinary Symptoms: No Dysuria Musculoskeletal: Back Pain, Fall, Injury, No Neck Pain Skin: Other (erythema right lower leg), No Rash Neurological: No Dizziness, No Focal Weakness, No Sensory Changes Psychological: No Symptoms Endocrine: No Symptoms Hematologic/Lymphatic: Other (on coumaden) Immunological/Allergic: No Symptoms All Other Systems: Reviewed and Negative - Past Medical History Pertinent Past Medical History: Yes Neurological History: TIA ENT History: Cataracts Cardiac History: Congestive Heart Failure, High Cholesterol, Hypertension Respiratory History: COPD, Pulmonary Embolism Endocrine Medical History: Other Musculoskeletal History: Arthritis, Degenerative Disk Disease GI Medical History: GERD History: Other Psycho-Social History: Anxiety, Depression Female Reproductive Disorders: No Pertinent History Other Medical History: THYROID NODULES, URINARY INCONTINENCE - Past Surgical History Past Surgical History: Yes Neuro Surgical History: No Pertinent History Cardiac: No Pertinent History Respiratory: No Pertinent History Gastrointestinal: No Pertinent History, Hemorrhoidectomy Genitourinary: No Pertinent History Musculoskeletal: No Pertinent History Female Surgical History: No Pertinent History Other Surgical History: LOWER BACK, CONNIE FEET, CONNIE KNEES, CATARACT REMOVAL, TONSILLECTOMY - Social History Smoking Status: Never smoker Exposure to second hand smoke: No Drug Use: none Patient Lives Alone: Yes - Nursing Vital Signs Nursing Vital Signs: Initial Vital Signs Temperature 98.2 F 12/06/19 19:54 Pulse Rate 86 12/06/19 19:54 Respiratory Rate 24 12/06/19 19:54 Blood Pressure 136/67 12/06/19 19:54 O2 Sat by Pulse Oximetry 95 12/06/19 19:54 Pain Scale Pain Intensity 9 - Physical Exam General Appearance: alert Eyes, Ears, Nose, Throat Exam: moist mucous membranes Neck Exam: non-tender, supple Cardiovascular/Respiratory Exam: chest non-tender, normal breath sounds, regular rate/rhythm, no respiratory distress Gastrointestinal/Abdominal Exam: non-tender, guarding Back Exam: normal inspection, No vertebral tenderness Hips Exam: right: limited range of motion, pain, soft tissue tenderness, left: non-tender, normal inspection, normal range of motion, no evidence of injury Legs Exam: right leg: other (distal erythema), bilateral leg: non-tender, normal inspection, normal range of motion, no evidence of injury Knees Exam: right knee: bone tenderness, pain, soft tissue tenderness, left knee: non-tender, normal inspection, normal range of motion, no evidence of injury Ankle Exam: bilateral ankle: non-tender, normal inspection, normal range of motion, no evidence of injury Foot Exam: bilateral foot: non-tender, normal inspection, normal range of motion, no evidence of injury DTR - Lower Extremities Exam: knee (R): 2+, knee (L): 2+, ankle (R): 2+, ankle (L): 2+ Neuro/Tendon Exam: normal sensation, normal motor functions Mental Status Exam: alert, oriented x 3, cooperative Skin Exam: normal color, warm, dry, other (erythema right lower leg) SpO2 Interpretation: normal SpO2: 95 O2 Delivery: Room Air - Course Nursing assessment & vital signs reviewed: Yes EKG Interpreted by Me: Sinus Rhythm, Non-specific ST Changes - CT Exams Lower Extremity CT Interpretation: Tele-radiologist Report, No Fracture, Other (DJD ) Lumbar Spine CT Interpretation: Tele-radiologist Report, No Fracture, Other (DJD , spleenin anuerysm calc aorta) Ordered Tests: Active Orders 24 hr Category Date Time Status EKG-ER Only STAT Care 12/06/19 20:08 Active IV Insertion STAT Care 12/06/19 20:08 Active LOWER EXTREMITY WO CONTRAST [CT] Stat Exams 12/06/19 19:58 Taken LOWER EXTREMITY WO CONTRAST [CT] Stat Exams 12/06/19 20:27 Taken LUMBAR SPINE W/O [CT] Stat Exams 12/06/19 19:58 Taken VENOUS BILATERAL EXTREMITY [US] Stat Exams 12/06/19 19:59 Taken CBC W DIFF Stat Lab 12/06/19 08:15 Completed CMP Stat Lab 12/06/19 08:15 Completed Lactic Acid Stat Lab 12/06/19 20:07 Completed NT PRO BNP Stat Lab 12/06/19 08:15 Completed PROTIME WITH INR Stat Lab 12/06/19 08:15 Completed TROPONIN Q3H Lab 12/06/19 08:15 Completed TROPONIN Q3H Lab 12/06/19 23:00 Received TROPONIN Q3H Lab 12/07/19 02:15 Ordered TROPONIN Q3H Lab 12/07/19 05:15 Ordered TROPONIN Q3H Lab 12/07/19 08:15 Ordered UA W/RFX UR CULTURE Stat Lab 12/06/19 21:55 Completed Medication Summary Discontinued Medications Generic Name Dose Route Start Last Admin Trade Name Freq PRN Reason Stop Dose Admin Morphine Sulfate 4 mg 12/06/19 20:40 12/06/19 20:43 Morphine Sulfate 4 Mg Inj IV 12/06/19 20:41 4 mg STAT ONE Administration Morphine Sulfate Confirm 12/06/19 20:42 Morphine Sulfate 4 Mg Inj Administered 12/06/19 20:43 Dose 4 mg .ROUTE .STK-MED ONE Morphine Sulfate 4 mg 12/06/19 23:43 Morphine Sulfate 4 Mg Inj IV 12/06/19 23:44 STAT ONE Lab/Rad Data: Laboratory Result Diagrams 12/06/19 08:15 12/06/19 08:15 Laboratory Results 12/06/19 12/06/19 12/06/19 Range/Units 21:55 20:07 08:15 WBC (4.0-10.5) K/mm3 RBC (4.1-5.4) M/mm3 Hgb (12.0-16.0) gm/dl Hct (35-47) % MCV (78-100) fl MCH (26-32) pg MCHC (32-36) g/dl RDW (11.5-14.0) % Plt Count (150-450) K/mm3 MPV (7.5-11.0) fl Gran % (36.0-66.0) % Eos # (Auto) (0-0.5) Absolute Lymphs (auto) (1.0-4.6) Absolute Monos (auto) (0.0-1.3) Lymphocytes % (24.0-44.0) % Monocytes % (0.0-12.0) % Eosinophils % (0.00-5.0) % Basophils % (0.0-0.4) % Absolute Granulocytes (1.4-6.9) Basophils # (0-0.4) PT (9.95-12.35) SECONDS INR (0.8-3.0) Sodium (137-145) mmol/L Potassium (3.5-5.1) mmol/L Chloride (98-107) mmol/L Carbon Dioxide (22-30) mmol/L Anion Gap (5-15) MEQ/L BUN (7-17) mg/dL Creatinine (0.52-1.04) mg/dL Estimated GFR ML/MIN Glucose (74-106) mg/dL Lactic Acid 1.4 (0.4-2.0) Calcium (8.4-10.2) mg/dL Total Bilirubin (0.2-1.3) mg/dL AST (14-36) U/L ALT (0-35) U/L Alkaline Phosphatase (38-126) U/L Troponin I < 0.012 (0.000-0.034) ng/mL NT-Pro-B Natriuret Pep (0-1800) pg/mL Serum Total Protein (6.3-8.2) g/dL Albumin (3.5-5.0) g/dL Urine Color YELLOW (YELLOW) Urine Appearance CLEAR (CLEAR) Urine pH 8.0 (5-6) Ur Specific [place] 1.011 (1.005-1.025) Urine Protein NEGATIVE (Negative) Urine Ketones NEGATIVE (NEGATIVE) Urine Blood NEGATIVE (0-5) Akash/ul Urine Nitrite NEGATIVE (NEGATIVE) Urine Bilirubin NEGATIVE (NEGATIVE) Urine Urobilinogen NEGATIVE (0-1) mg/dL Ur Leukocyte Esterase NEGATIVE (NEGATIVE) Urine WBC (Auto) NONE (0-5) /HPF Urine RBC (Auto) 0-2 (0-2) /HPF U Epithel Cells (Auto) NONE (FEW) /HPF Urine Bacteria (Auto) NONE (NEGATIVE) /HPF Urine Culture Reflexed NO (NO) Urine Glucose NEGATIVE (NEGATIVE) mg/dL 12/06/19 12/06/19 12/06/19 Range/Units 08:15 08:15 08:15 WBC 8.4 (4.0-10.5) K/mm3 RBC 4.38 (4.1-5.4) M/mm3 Hgb 13.2 (12.0-16.0) gm/dl Hct 42.2 (35-47) % MCV 96.3 (78-100) fl MCH 30.1 (26-32) pg MCHC 31.3 L (32-36) g/dl RDW 15.6 H (11.5-14.0) % Plt Count 281 (150-450) K/mm3 MPV 8.9 (7.5-11.0) fl Gran % 78.9 H (36.0-66.0) % Eos # (Auto) 0.05 (0-0.5) Absolute Lymphs (auto) 0.89 L (1.0-4.6) Absolute Monos (auto) 0.80 (0.0-1.3) Lymphocytes % 10.6 L (24.0-44.0) % Monocytes % 9.5 (0.0-12.0) % Eosinophils % 0.6 (0.00-5.0) % Basophils % 0.4 (0.0-0.4) % Absolute Granulocytes 6.65 (1.4-6.9) Basophils # 0.03 (0-0.4) PT 28.1 H (9.95-12.35) SECONDS INR 2.46 (0.8-3.0) Sodium 136 L (137-145) mmol/L Potassium 4.1 (3.5-5.1) mmol/L Chloride 105 (98-107) mmol/L Carbon Dioxide 27 (22-30) mmol/L Anion Gap 8.1 (5-15) MEQ/L BUN 24 H (7-17) mg/dL Creatinine 1.29 H (0.52-1.04) mg/dL Estimated GFR 41.4 ML/MIN Glucose 125 H (74-106) mg/dL Lactic Acid (0.4-2.0) Calcium 9.2 (8.4-10.2) mg/dL Total Bilirubin 0.40 (0.2-1.3) mg/dL AST 23 (14-36) U/L ALT 15 (0-35) U/L Alkaline Phosphatase 97 (38-126) U/L Troponin I (0.000-0.034) ng/mL NT-Pro-B Natriuret Pep 109 (0-1800) pg/mL Serum Total Protein 6.1 L (6.3-8.2) g/dL Albumin 3.6 (3.5-5.0) g/dL Urine Color (YELLOW) Urine Appearance (CLEAR) Urine pH (5-6) Ur Specific [place] (1.005-1.025) Urine Protein (Negative) Urine Ketones (NEGATIVE) Urine Blood (0-5) Akash/ul Urine Nitrite (NEGATIVE) Urine Bilirubin (NEGATIVE) Urine Urobilinogen (0-1) mg/dL Ur Leukocyte Esterase (NEGATIVE) Urine WBC (Auto) (0-5) /HPF Urine RBC (Auto) (0-2) /HPF U Epithel Cells (Auto) (FEW) /HPF Urine Bacteria (Auto) (NEGATIVE) /HPF Urine Culture Reflexed (NO) Urine Glucose (NEGATIVE) mg/dL - Progress Progress: improved, re-examined Progress Note: 12/07/19 00:[address] Man and will admit obs for intractable pain DJD- pt also agrees. pain was not relieved by large levels of narcotic and will require obs in house to control - will add steroids. 12/07/19 00:03 Discussed with : Agatha Will see patient in: hospital (observation) Counseled pt/family regarding: lab results, diagnosis, need for follow-up, rad results - Departure Departure Disposition: Observation Clinical Impression: DJD/ intractable pain Condition: Good Critical Care Time: No Referrals: SAPNA ELLER [Primary Care Provider] -
[2019-12-06 20:29] LABS: INR 2.46 (0.8-3.0); PROTIME 28.1 SECONDS (9.95-12.35)
[2019-12-06 20:30] LABS: Absolute Neutrophil Ct (ANC) 6.65 (1.4-6.9); BASOPHIL % 0.4 % (0.0-0.4); Basophil (Absolute #) 0.03 (0-0.4); Eosinophil % 0.6 % (0.00-5.0); Eosinophil (Absolute #) 0.05 (0-0.5); Hematocrit 42.2 % (35-47); Hemoglobin 13.2 gm/dl (12.0-16.0); Lymphocyte (Absolute #) 0.89 (1.0-4.6); Lymphocytes % 10.6 % (24.0-44.0); Mean Cell Volume 96.3 fl (78-100); Mean Corpuscular Hemoglobin 30.1 pg (26-32); Mean Corpuscular Hgb Concent. 31.3 g/dl (32-36); Mean Platelet Volume 8.9 fl (7.5-11.0); Monocytes % 9.5 % (0.0-12.0); Neutrophil % 78.9 % (36.0-66.0); Platelet Count 281 K/mm3 (150-450); Red Blood Count 4.38 M/mm3 (4.1-5.4); Red Cell Distribution Width 15.6 % (11.5-14.0); White Blood Count 8.4 K/mm3 (4.0-10.5)
[2019-12-06] MEDS ORDERED: MORPHINE SULFATE 4 MG INJ IV ONE ×2 (20:40→23:43)
[2019-12-06] MEDS ORDERED: MORPHINE SULFATE 4 MG INJ ONE (20:42)
[2019-12-06 20:46] LABS: ALBUMIN 3.6 g/dL (3.5-5.0); ANION GAP 8.1 MEQ/L (5-15); BILIRUBIN,TOTAL 0.4 mg/dL (0.2-1.3); Calcium 9.2 mg/dL (8.4-10.2); Creatinine 1 1.29 mg/dL (0.52-1.04); EST GLOMERULAR FILTRATION RATE 41.4 ML/MIN; Potassium 4.1 mmol/L (3.5-5.1); Total Protein 6.1 g/dL (6.3-8.2)
[2019-12-06 22:06] LABS: Appearance CLEAR (CLEAR); Bilirubin NEGATIVE (NEGATIVE); Blood NEGATIVE Ery/ul (0-5); Glucose NEGATIVE (NEGATIVE); Ketones NEGATIVE (NEGATIVE); Leukocyte Esterase NEGATIVE (NEGATIVE); Nitrite NEGATIVE (NEGATIVE); Protein,Urine Dip NEGATIVE (Negative); RBC 0-2 /HPF (0-2); Specific Gravity 1.011 (1.005-1.025); Urobilinogen NEGATIVE mg/dL (0-1)
[2019-12-07] MEDS ORDERED: MORPHINE SULFATE 4 MG INJ ONE (00:02)
[2019-12-07] MEDS ORDERED: Zofran 4 MG/2 ML VIAL ONE (00:08)
[2019-12-07] MEDS ORDERED: Zofran 4 MG/2 ML VIAL IV ONE (00:10)
[2019-12-07] MEDS ORDERED: HUMULIN R SQ PRN (00:54)
[2019-12-07] MEDS ORDERED: solu-MEDROL 40 MG IV SCH (00:54)
[2019-12-07] MEDS ORDERED: Zofran 4 MG/2 ML VIAL IV PRN (00:54)
[2019-12-07] MEDS: Sodium Chloride 0.9% 1000 ML 1,000 ML IV SCH ×2 (01:16→23:03)
[2019-12-07] MEDS: Hydromorphone 1 mg/ml Injection IV PRN ×3 (01:17→14:19)
[2019-12-07] MEDS ORDERED: VENTOLIN COMMON CANISTER IH PRN (01:33)
[2019-12-07 05:53] LABS: ALBUMIN 3.8 g/dL (3.5-5.0); ANION GAP 10.1 MEQ/L (5-15); BILIRUBIN,TOTAL 0.6 mg/dL (0.2-1.3); Calcium 8.7 mg/dL (8.4-10.2); Creatinine 1 1.06 mg/dL (0.52-1.04); EST GLOMERULAR FILTRATION RATE 51.9 ML/MIN; Potassium 4.8 mmol/L (3.5-5.1); Total Protein 6.5 g/dL (6.3-8.2)
[2019-12-07 05:58] LABS: Absolute Neutrophil Ct (ANC) 8.73 (1.4-6.9); BASOPHIL % 0.1 % (0.0-0.4); Basophil (Absolute #) 0.01 (0-0.4); Eosinophil % 0.1 % (0.00-5.0); Eosinophil (Absolute #) 0.01 (0-0.5); Hematocrit 42.4 % (35-47); Hemoglobin 13.2 gm/dl (12.0-16.0); Lymphocyte (Absolute #) 0.33 (1.0-4.6); Lymphocytes % 3.5 % (24.0-44.0); Mean Cell Volume 97.2 fl (78-100); Mean Corpuscular Hemoglobin 30.3 pg (26-32); Mean Corpuscular Hgb Concent. 31.1 g/dl (32-36); Mean Platelet Volume 9.1 fl (7.5-11.0); Monocyte (Absolute #) 0.29 (0.0-1.3); Monocytes % 3.1 % (0.0-12.0); Neutrophil % 93.2 % (36.0-66.0); Platelet Count 270 K/mm3 (150-450); Red Blood Count 4.36 M/mm3 (4.1-5.4); Red Cell Distribution Width 15.7 % (11.5-14.0); White Blood Count 9.4 K/mm3 (4.0-10.5)
[2019-12-07] MEDS ORDERED: Fosamax 70 MG PO SCH (06:00)
[2019-12-07] MEDS: VENTOLIN COMMON CANISTER IH SCH ×3 (06:39→19:15)
[2019-12-07 08:37] LABS: Slide Review 1 YES
--- NOTE | 2019-12-07 09:06 | XRAY ---
Indication: Pain. Multiple contiguous axial images obtained through the lumbar spine. Two-dimensional sagittal and coronal reformatted images obtained. Comparison: CT abdomen/pelvis September 28, 2015. Stable age-appropriate osteopenia. Axial images negative for acute fracture, suspicious bony lesions, or spinal canal stenosis. Stable moderate/advanced L1-S1 degenerative disc disease with degenerative endplate spurring/sclerosis and vacuum disc phenomena. Additional stable lesser degenerative disc disease seen of the visualized lower thoracic spine. Sagittal and coronal reformatted images again demonstrates normal lumbar alignment with L1-L5 disc space loss. No acute compression fracture or subluxation. Visualized noncontrasted soft tissues again demonstrates small hiatal hernia, splenic artery calcified saccular aneurysm, right renal exophytic cyst, and calcified uterine fibroids. Impression: 1. Stable osteopenia, multilevel degenerative disc disease, and incidental soft tissue findings. 2. Negative acute fracture, or subluxation. Comment: Preliminary interpretation was made by [facility]. No critical discrepancy.
--- NOTE | 2019-12-07 09:08 | XRAY ---
Indication: Bilateral leg pain and swelling. Two-dimensional sonogram and color Doppler imaging of the major venous vessels of the left and right leg was performed. Comparison: None No thrombus seen in the examined deep venous vessels of the left and right leg including greater saphenous vein. Veins demonstrate normal compressibility. Venous waveforms are normal with and without augmentation. Impression: Left and right legs negative for DVT. Comment: Preliminary report was given.
--- NOTE | 2019-12-07 09:10 | XRAY ---
Indication: Pain. Multiple contiguous axial images obtained through the right knee. Two-dimensional sagittal and coronal reformatted images obtained. Comparison: None. Age-related osteopenia. There has been total knee arthroplasty with grossly intact prosthesis producing extreme beam artifact limiting these levels. Moderate knee effusion appears slightly high in density possibly hemarthrosis. No acute fracture, dislocation, or suspicious bony lesions. Visualized noncontrasted soft tissues demonstrates mild scattered vascular calcifications. Impression: 1. Total knee arthroplasty with beam artifact from prosthesis. 2. High density effusion. Rule out hemarthrosis. 3. Osteopenia. Comment: Preliminary interpretation was made by [facility]. No critical discrepancy.
--- NOTE | 2019-12-07 09:14 | XRAY ---
Indication: Pain. Multiple contiguous axial images obtained through the right hip. Two-dimensional sagittal and coronal reformatted images obtained. Comparison: None. Age-related osteopenia. There is mild degenerative joint space narrowing. Proximal medial femur shaft demonstrates small bony exostosis. No acute fracture, dislocation, or suspicious bony lesions. No acute fracture, dislocation, or suspicious bony lesions. Visualized noncontrasted soft tissues demonstrates small calcified uterine fibroid and mild scattered vascular calcifications. Impression: 1. Osteopenia, mild degenerative changes, and incidental soft tissue findings. 2. Remaining CT right hip is negative. Comment: Preliminary interpretation was made by [facility]. No critical discrepancy.
[2019-12-07] MEDS: Pepcid 20 MG VIAL IV SCH (09:50)
[2019-12-07] MEDS: solu-MEDROL 40 MG IV SCH ×2 (09:50→17:35)
[2019-12-07] MEDS: Coumadin 5 MG PO SCH (17:35)
--- NOTE | 2019-12-07 19:23 | PCM.HP ---
History of Present Illness - Chief Complaint Chief Complaint: intractable pain DJD History of Present Illness: is a 89 year old female who is a resident at [facility] longterm with decreased mobility due to DDD lumbar region, DJD knees S/P remote bilateral replacements and is morbidly obese,also HTN,hyperlipidemia,CHF,COPD,Hx PE and TIA,Afib on Coumadin.Gisella is on Fosamax for osteoporosis. She suffered a fall when she caught her foot on her walker and hit her left knee 1-2 weeks ago but later developed severe pain from right hip down to right knee. ER evaluation CT right LE and Lumbar spine xray did not show a fracture. Bilateral venous dopler negative for DVT. Patient was admitted for pain control and further evaluation. Nurising home staff reports she never complains of pain so this was unusual for her to have intractable pain. - Review of Systems Constitutional: No Symptoms Eyes: No Symptoms Ears, Nose, & Throat: No Symptoms, Other (chronic sinusitis uses flonase) Respiratory: Other (occasional cough) Cardiac: Other (Afib on coumadin denies chest pain or palpitations does have chronic edema is on Lasix) Abdominal/Gastrointestinal: No Symptoms, Other (has belching problem) Genitourinary Symptoms: No Symptoms Musculoskeletal: Back Pain, Fall, Joint Pain (see HPI) Skin: No Symptoms Neurological: No Symptoms Psychological: Anxiety, Depression (stable on med) Endocrine: No Symptoms Hematologic/Lymphatic: No Symptoms, Other (is on Coumadin) Medications & Allergies Home Medications: Home Medication List Acebutolol 200 mg [Sectral 200 MG] 200 mg PO DAILY 11/07/11 [History Confirmed 12/07/19] Docusate Sodium 100 mg [Colace 100 MG] 100 mg PO BID #0 capsule 11/07/11 [Rx Confirmed 12/07/19] Furosemide 20 mg [Lasix 20 mg] 20 mg PO DAILY 11/07/11 [History Confirmed 12/07/19] Pravastatin Sodium 20 mg PO HS 04/20/13 [History Confirmed 12/07/19] Tolterodine Tartrate [Detrol LA] 2 mg PO DAILY 04/20/13 [History Confirmed 12/07/19] Alendronate Sodium 70 mg [Fosamax 70 MG] 1 tab PO WEEKLY 06/11/14 [History Confirmed 12/06/19] Warfarin Sodium 1 mg [Coumadin 1 MG] 5 mg PO DAILY 06/11/14 [History Confirmed 12/07/19] Acetaminophen 325 mg [Tylenol 325 mg] 650 mg PO Q4H PRN PRN tablet 04/24/19 [Rx Confirmed 12/06/19] Albuterol Common Canister [Ventolin Common Canister] 2 puff IH TID 04/24/19 [History Confirmed 12/07/19] Calcifediol [Rayaldee] 30 mcg PO DAILY 04/24/19 [History Confirmed 12/07/19] Fexofenadine HCl 180 mg PO DAILY 04/24/19 [History Confirmed 12/07/19] Fluoxetine HCl 40 mg PO DAILY 04/24/19 [History Confirmed 12/07/19] Fluticasone Propionate [Flonase NASAL] 1 spray NS DAILY 04/24/19 [History Confirmed 12/07/19] Nitroglycerin 0.2 mg/Hr [Nitro-Dur 0.2 mg/Hr] 0.2 mg TD DAILY 04/24/19 [History Confirmed 12/07/19] Polyethylene Glycol 3350 17 gm [Miralax Powder 17GM PACKET] 17 gm PO DAILY PRN PRN 04/24/19 [History Confirmed 12/06/19] Ascorbic Acid [Vitamin C with Shanita Hips] 1 ea PO DAILY 12/06/19 [History Confirmed 12/07/19] Mv,Calcium,Min/Iron/Folic/Vitk [Multi For Her Tablet] 1 ea PO DAILY 12/06/19 [History Confirmed 12/07/19] PANTOPRAZOLE 40 mg Tablet [Protonix 40MG Tablet] 1 ea PO DAILY 12/06/19 [History Confirmed 12/07/19] Simethicone 80 mg [Mylicon 80MG] 1 ea PO BID 12/06/19 [History Confirmed 12/07/19] Cholecalciferol (Vitamin D3) [Vitamin D3] 4,000 unit PO DAILY 12/07/19 [History Confirmed 12/07/19] Zolpidem Tartrate 5 mg PO HS 12/07/19 [History Confirmed 12/07/19] Albuterol Common Canister [Ventolin Common Canister] 2 puff IH TIDRT puff 12/08/19 [Rx] Prednisone 10 mg [Deltasone 10 mg] 10 mg PO BID 14 Days #20 tablet NS 12/08/19 [Rx] Allergies/Adverse Reactions: Allergies Allergy/AdvReac Type Severity Reaction Status Date / Time quinine [Quinine] AdvReac Mild Nausea Verified 12/06/19 20:06 - Past Medical History Past Medical History: Yes Neurological History: TIA ENT History: Cataracts Cardiac History: Arrhythmia (Afib), Congestive Heart Failure, High Cholesterol, Hypertension CARDIAC HISTORY: Peripheral Vascular Disease Respiratory History: COPD, Pulmonary Embolism Endocrine Medical History: Other Musculoskelatal History: Arthritis, Degenerative Disk Disease, Osteoporosis (on Fosamax) GI Medical History: GERD History: Other Pyscho-Social History: Anxiety, Depression Reproductive Disorders: No Pertinent History Comment: THYROID NODULES, URINARY INCONTINENCE - Female History Are you now?: No - Past Surgical History Past Surgical History: Yes Neuro Surgical History: No Pertinent History Cardiac History: No Pertinent History Respiratory Surgery: No Pertinent History GI Surgical History: No Pertinent History, Hemorrhoidectomy Genitourinary Surgical Hx: No Pertinent History Musculskeletal Surgical Hx: No Pertinent History Female Surgical History: No Pertinent History Other Surgical History: LOWER BACK, CONNIE FEET, CONNIE KNEES, CATARACT REMOVAL, TONSILLECTOMY - Social History Smoking Status: Never smoker Exposure to second hand smoke: No Alcohol: None Drug Use: none - Physical Exam Vital Signs: Vital Signs - 24 hr Temp Pulse Resp BP BP Pulse Ox 12/07/19 16:00 98.2 F 88 18 152/65 94 L 12/07/19 13:02 89 20 93 L 12/07/19 12:00 98.1 F 83 18 138/71 95 12/07/19 07:28 97.8 F 105 H 16 133/59 94 L 12/07/19 06:41 87 18 95 12/07/19 03:52 98.2 F 98 H 16 124/60 95 12/07/19 02:01 98.1 F 96 H 26 H 146/76 96 12/07/19 01:31 79 18 96 12/07/19 00:57 78 16 138/70 98 12/07/19 00:04 95 12/06/19 23:00 90 20 182/83 96 12/06/19 22:00 94 H 22 173/76 96 12/06/19 21:51 90 22 178/81 98 12/06/19 19:54 98.2 F 86 24 136/67 95 General Appearance: mild distress (c/o right knee is aching,is on morphine and Solumedrol) Neurologic Exam: alert, oriented x 3, cooperative, normal mood/affect, other (difficulty with ambulation due to pain RLE) Eye Exam: eyes nml inspection Ears, Nose, Throat Exam: normal ENT inspection Neck Exam: other (no JVD,thyroid palpable nontender) Respiratory Exam: wheezing (eew left upper lung no ronchi no rales) Cardiovascular Exam: regular rate/rhythm, edema (1+/4 bilat LE,R>L) Pelvic Exam: not done Rectal Exam: not done Back Exam: muscle spasm (paralumbar,not point tender) Extremity Exam: swelling (left knee upper lateral 3x4cm fluctuant purple area/hematoma. Right knee stable,generalized swelling pain across mid joint line,negative homans and neg venous dopler. Not red or hot. tender right trochateric bursa area 3+/4 .) Skin Exam: normal color, warm, dry Results - Labs Lab/Micro Results: Lab Results-Last 24 Hours 12/06/19 12/06/19 12/06/19 Range/Units 08:15 08:15 08:15 WBC 8.4 (4.0-10.5) K/mm3 RBC 4.38 (4.1-5.4) M/mm3 Hgb 13.2 (12.0-16.0) gm/dl Hct 42.2 (35-47) % MCV 96.3 (78-100) fl MCH 30.1 (26-32) pg MCHC 31.3 L (32-36) g/dl RDW 15.6 H (11.5-14.0) % Plt Count 281 (150-450) K/mm3 MPV 8.9 (7.5-11.0) fl Gran % 78.9 H (36.0-66.0) % Eos # (Auto) 0.05 (0-0.5) Absolute Lymphs (auto) 0.89 L (1.0-4.6) Absolute Monos (auto) 0.80 (0.0-1.3) Lymphocytes % 10.6 L (24.0-44.0) % Monocytes % 9.5 (0.0-12.0) % Eosinophils % 0.6 (0.00-5.0) % Basophils % 0.4 (0.0-0.4) % Absolute Granulocytes 6.65 (1.4-6.9) Basophils # 0.03 (0-0.4) PT 28.1 H (9.95-12.35) SECONDS INR 2.46 (0.8-3.0) Sodium 136 L (137-145) mmol/L Potassium 4.1 (3.5-5.1) mmol/L Chloride 105 (98-107) mmol/L Carbon Dioxide 27 (22-30) mmol/L Anion Gap 8.1 (5-15) MEQ/L BUN 24 H (7-17) mg/dL Creatinine 1.29 H (0.52-1.04) mg/dL Estimated GFR 41.4 ML/MIN Glucose 125 H (74-106) mg/dL Lactic Acid (0.4-2.0) Calcium 9.2 (8.4-10.2) mg/dL Total Bilirubin 0.40 (0.2-1.3) mg/dL AST 23 (14-36) U/L ALT 15 (0-35) U/L Alkaline Phosphatase 97 (38-126) U/L Troponin I (0.000-0.034) ng/mL NT-Pro-B Natriuret Pep 109 (0-1800) pg/mL Serum Total Protein 6.1 L (6.3-8.2) g/dL Albumin 3.6 (3.5-5.0) g/dL Prealbumin (17.6-36.0) mg/dL Urine Color (YELLOW) Urine Appearance (CLEAR) Urine pH (5-6) Ur Specific [place] (1.005-1.025) Urine Protein (Negative) Urine Ketones (NEGATIVE) Urine Blood (0-5) Akash/ul Urine Nitrite (NEGATIVE) Urine Bilirubin (NEGATIVE) Urine Urobilinogen (0-1) mg/dL Ur Leukocyte Esterase (NEGATIVE) Urine WBC (Auto) (0-5) /HPF Urine RBC (Auto) (0-2) /HPF U Epithel Cells (Auto) (FEW) /HPF Urine Bacteria (Auto) (NEGATIVE) /HPF Urine Culture Reflexed (NO) Urine Glucose (NEGATIVE) mg/dL Slides for Path Review 12/06/19 12/06/19 12/06/19 Range/Units 08:15 20:07 21:55 WBC (4.0-10.5) K/mm3 RBC (4.1-5.4) M/mm3 Hgb (12.0-16.0) gm/dl Hct (35-47) % MCV (78-100) fl MCH (26-32) pg MCHC (32-36) g/dl RDW (11.5-14.0) % Plt Count (150-450) K/mm3 MPV (7.5-11.0) fl Gran % (36.0-66.0) % Eos # (Auto) (0-0.5) Absolute Lymphs (auto) (1.0-4.6) Absolute Monos (auto) (0.0-1.3) Lymphocytes % (24.0-44.0) % Monocytes % (0.0-12.0) % Eosinophils % (0.00-5.0) % Basophils % (0.0-0.4) % Absolute Granulocytes (1.4-6.9) Basophils # (0-0.4) PT (9.95-12.35) SECONDS INR (0.8-3.0) Sodium (137-145) mmol/L Potassium (3.5-5.1) mmol/L Chloride (98-107) mmol/L Carbon Dioxide (22-30) mmol/L Anion Gap (5-15) MEQ/L BUN (7-17) mg/dL Creatinine (0.52-1.04) mg/dL Estimated GFR ML/MIN Glucose (74-106) mg/dL Lactic Acid 1.4 (0.4-2.0) Calcium (8.4-10.2) mg/dL Total Bilirubin (0.2-1.3) mg/dL AST (14-36) U/L ALT (0-35) U/L Alkaline Phosphatase (38-126) U/L Troponin I < 0.012 (0.000-0.034) ng/mL NT-Pro-B Natriuret Pep (0-1800) pg/mL Serum Total Protein (6.3-8.2) g/dL Albumin (3.5-5.0) g/dL Prealbumin (17.6-36.0) mg/dL Urine Color YELLOW (YELLOW) Urine Appearance CLEAR (CLEAR) Urine pH 8.0 (5-6) Ur Specific [place] 1.011 (1.005-1.025) Urine Protein NEGATIVE (Negative) Urine Ketones NEGATIVE (NEGATIVE) Urine Blood NEGATIVE (0-5) Akash/ul Urine Nitrite NEGATIVE (NEGATIVE) Urine Bilirubin NEGATIVE (NEGATIVE) Urine Urobilinogen NEGATIVE (0-1) mg/dL Ur Leukocyte Esterase NEGATIVE (NEGATIVE) Urine WBC (Auto) NONE (0-5) /HPF Urine RBC (Auto) 0-2 (0-2) /HPF U Epithel Cells (Auto) NONE (FEW) /HPF Urine Bacteria (Auto) NONE (NEGATIVE) /HPF Urine Culture Reflexed NO (NO) Urine Glucose NEGATIVE (NEGATIVE) mg/dL Slides for Path Review 12/06/19 12/07/19 12/07/19 Range/Units 23:00 02:15 05:13 WBC (4.0-10.5) K/mm3 RBC (4.1-5.4) M/mm3 Hgb (12.0-16.0) gm/dl Hct (35-47) % MCV (78-100) fl MCH (26-32) pg MCHC (32-36) g/dl RDW (11.5-14.0) % Plt Count (150-450) K/mm3 MPV (7.5-11.0) fl Gran % (36.0-66.0) % Eos # (Auto) (0-0.5) Absolute Lymphs (auto) (1.0-4.6) Absolute Monos (auto) (0.0-1.3) Lymphocytes % (24.0-44.0) % Monocytes % (0.0-12.0) % Eosinophils % (0.00-5.0) % Basophils % (0.0-0.4) % Absolute Granulocytes (1.4-6.9) Basophils # (0-0.4) PT (9.95-12.35) SECONDS INR (0.8-3.0) Sodium (137-145) mmol/L Potassium (3.5-5.1) mmol/L Chloride (98-107) mmol/L Carbon Dioxide (22-30) mmol/L Anion Gap (5-15) MEQ/L BUN (7-17) mg/dL Creatinine (0.52-1.04) mg/dL Estimated GFR ML/MIN Glucose (74-106) mg/dL Lactic Acid (0.4-2.0) Calcium (8.4-10.2) mg/dL Total Bilirubin (0.2-1.3) mg/dL AST (14-36) U/L ALT (0-35) U/L Alkaline Phosphatase (38-126) U/L Troponin I < 0.012 < 0.012 < 0.012 (0.000-0.034) ng/mL NT-Pro-B Natriuret Pep (0-1800) pg/mL Serum Total Protein (6.3-8.2) g/dL Albumin (3.5-5.0) g/dL Prealbumin (17.6-36.0) mg/dL Urine Color (YELLOW) Urine Appearance (CLEAR) Urine pH (5-6) Ur Specific [place] (1.005-1.025) Urine Protein (Negative) Urine Ketones (NEGATIVE) Urine Blood (0-5) Akash/ul Urine Nitrite (NEGATIVE) Urine Bilirubin (NEGATIVE) Urine Urobilinogen (0-1) mg/dL Ur Leukocyte Esterase (NEGATIVE) Urine WBC (Auto) (0-5) /HPF Urine RBC (Auto) (0-2) /HPF U Epithel Cells (Auto) (FEW) /HPF Urine Bacteria (Auto) (NEGATIVE) /HPF Urine Culture Reflexed (NO) Urine Glucose (NEGATIVE) mg/dL Slides for Path Review 12/07/19 12/07/19 12/07/19 Range/Units 05:13 05:13 05:13 WBC 9.4 (4.0-10.5) K/mm3 RBC 4.36 (4.1-5.4) M/mm3 Hgb 13.2 (12.0-16.0) gm/dl Hct 42.4 (35-47) % MCV 97.2 (78-100) fl MCH 30.3 (26-32) pg MCHC 31.1 L (32-36) g/dl RDW 15.7 H (11.5-14.0) % Plt Count 270 (150-450) K/mm3 MPV 9.1 (7.5-11.0) fl Gran % 93.2 H (36.0-66.0) % Eos # (Auto) 0.01 (0-0.5) Absolute Lymphs (auto) 0.33 L (1.0-4.6) Absolute Monos (auto) 0.29 (0.0-1.3) Lymphocytes % 3.5 L (24.0-44.0) % Monocytes % 3.1 (0.0-12.0) % Eosinophils % 0.1 (0.00-5.0) % Basophils % 0.1 (0.0-0.4) % Absolute Granulocytes 8.73 H (1.4-6.9) Basophils # 0.01 (0-0.4) PT (9.95-12.35) SECONDS INR (0.8-3.0) Sodium 136 L (137-145) mmol/L Potassium 4.8 (3.5-5.1) mmol/L Chloride 107 (98-107) mmol/L Carbon Dioxide 24 (22-30) mmol/L Anion Gap 10.1 (5-15) MEQ/L BUN 21 H (7-17) mg/dL Creatinine 1.06 H (0.52-1.04) mg/dL Estimated GFR 51.9 ML/MIN Glucose 161 H (74-106) mg/dL Lactic Acid (0.4-2.0) Calcium 8.7 (8.4-10.2) mg/dL Total Bilirubin 0.60 (0.2-1.3) mg/dL AST 29 (14-36) U/L ALT 16 (0-35) U/L Alkaline Phosphatase 80 (38-126) U/L Troponin I (0.000-0.034) ng/mL NT-Pro-B Natriuret Pep (0-1800) pg/mL Serum Total Protein 6.5 (6.3-8.2) g/dL Albumin 3.8 (3.5-5.0) g/dL Prealbumin 24.82 (17.6-36.0) mg/dL Urine Color (YELLOW) Urine Appearance (CLEAR) Urine pH (5-6) Ur Specific [place] (1.005-1.025) Urine Protein (Negative) Urine Ketones (NEGATIVE) Urine Blood (0-5) Akash/ul Urine Nitrite (NEGATIVE) Urine Bilirubin (NEGATIVE) Urine Urobilinogen (0-1) mg/dL Ur Leukocyte Esterase (NEGATIVE) Urine WBC (Auto) (0-5) /HPF Urine RBC (Auto) (0-2) /HPF U Epithel Cells (Auto) (FEW) /HPF Urine Bacteria (Auto) (NEGATIVE) /HPF Urine Culture Reflexed (NO) Urine Glucose (NEGATIVE) mg/dL Slides for Path Review YES 12/07/19 Range/Units 08:26 WBC (4.0-10.5) K/mm3 RBC (4.1-5.4) M/mm3 Hgb (12.0-16.0) gm/dl Hct (35-47) % MCV (78-100) fl MCH (26-32) pg MCHC (32-36) g/dl RDW (11.5-14.0) % Plt Count (150-450) K/mm3 MPV (7.5-11.0) fl Gran % (36.0-66.0) % Eos # (Auto) (0-0.5) Absolute Lymphs (auto) (1.0-4.6) Absolute Monos (auto) (0.0-1.3) Lymphocytes % (24.0-44.0) % Monocytes % (0.0-12.0) % Eosinophils % (0.00-5.0) % Basophils % (0.0-0.4) % Absolute Granulocytes (1.4-6.9) Basophils # (0-0.4) PT (9.95-12.35) SECONDS INR (0.8-3.0) Sodium (137-145) mmol/L Potassium (3.5-5.1) mmol/L Chloride (98-107) mmol/L Carbon Dioxide (22-30) mmol/L Anion Gap (5-15) MEQ/L BUN (7-17) mg/dL Creatinine (0.52-1.04) mg/dL Estimated GFR ML/MIN Glucose (74-106) mg/dL Lactic Acid (0.4-2.0) Calcium (8.4-10.2) mg/dL Total Bilirubin (0.2-1.3) mg/dL AST (14-36) U/L ALT (0-35) U/L Alkaline Phosphatase (38-126) U/L Troponin I < 0.012 (0.000-0.034) ng/mL NT-Pro-B Natriuret Pep (0-1800) pg/mL Serum Total Protein (6.3-8.2) g/dL Albumin (3.5-5.0) g/dL Prealbumin (17.6-36.0) mg/dL Urine Color (YELLOW) Urine Appearance (CLEAR) Urine pH (5-6) Ur Specific [place] (1.005-1.025) Urine Protein (Negative) Urine Ketones (NEGATIVE) Urine Blood (0-5) Akash/ul Urine Nitrite (NEGATIVE) Urine Bilirubin (NEGATIVE) Urine Urobilinogen (0-1) mg/dL Ur Leukocyte Esterase (NEGATIVE) Urine WBC (Auto) (0-5) /HPF Urine RBC (Auto) (0-2) /HPF U Epithel Cells (Auto) (FEW) /HPF Urine Bacteria (Auto) (NEGATIVE) /HPF Urine Culture Reflexed (NO) Urine Glucose (NEGATIVE) mg/dL Slides for Path Review - Radiology Impressions Radiology Exams & Impressions: Radiology Procedures Category Date Time Status LOWER EXTREMITY WO CONTRAST [CT] Stat Exams 12/06/19 19:58 Completed LOWER EXTREMITY WO CONTRAST [CT] Stat Exams 12/06/19 20:27 Completed LUMBAR SPINE W/O [CT] Stat Exams 12/06/19 19:58 Completed VENOUS BILATERAL EXTREMITY [US] Stat Exams 12/06/19 19:59 Completed - Other Procedures and Tests Respiratory Therapy 12/07/19 01:31 Respiratory Therapy Assessment DAILY 12/07/19 02:20 Oxygen Nasal Cannula 2 lpm Assessment/Plan (1) Hematoma and contusion Status: Acute Assessment & Plan: left knee from fall 2 weeks ago Code(s): T14.8 - OTHER INJURY OF UNSPECIFIED BODY REGION * DO NOT USE * (2) Trochanteric bursitis Status: Acute Qualifiers: Laterality: right Qualified Code(s): M70.61 - Trochanteric bursitis, right hip Assessment & Plan: improved on IV solumedrol will give Prednisone 10 mg BID x 7 days then q day x 7days then stop. Code(s): M70.60 - TROCHANTERIC BURSITIS, UNSPECIFIED HIP (3) Right knee pain Status: Acute Qualifiers: Chronicity: unspecified Qualified Code(s): M25.561 - Pain in right knee Assessment & Plan: pain and swelling right knee ,would have appreciated MRI but not able due to Hx bilateral knee replacements,will do standing knee xrays and see Ortho as outpatient Code(s): M25.561 - PAIN IN RIGHT KNEE (4) DDD (degenerative disc disease), lumbar Status: Chronic Assessment & Plan: flare up after fall Code(s): M51.36 - OTHER INTERVERTEBRAL DISC DEGENERATION, LUMBAR REGION (5) Fall Status: Acute Qualifiers: Encounter type: subsequent encounter Qualified Code(s): W19.XXXD - Unspecified fall, subsequent encounter Assessment & Plan: 2 weeks ago Code(s): W19.XXXA - UNSPECIFIED FALL, INITIAL ENCOUNTER (6) Hypoxia Status: Acute Assessment & Plan: due to IV morphine ,moniter Code(s): R09.02 - HYPOXEMIA (7) HTN (hypertension) Status: Chronic Code(s): I10 - ESSENTIAL (PRIMARY) HYPERTENSION (8) Wheezing Status: Resolved Assessment & Plan: mild,COPD ,albuterol inhaler Code(s): R06.2 - WHEEZING (9) roasterman current use of anticoagulant Status: Chronic Assessment & Plan: on Coumadin S/P remote PE and TIA Code(s): Z79.01 - VALUE ADVISOR (CURRENT) USE OF ANTICOAGULANTS (10) Afib Status: Chronic Assessment & Plan: controlled rate on current meds,remains on Coumadin. Code(s): I48.91 - UNSPECIFIED ATRIAL FIBRILLATION
[2019-12-07] MEDS ORDERED: Norco 10/325 MG Tablet PO PRN (20:28)
[2019-12-07] MEDS ORDERED: Ambien 5 MG Tablet PO SCH (22:00)
[2019-12-07] MEDS ORDERED: ZOCOR 20MG PO SCH (22:00)
[2019-12-08] MEDS: Mylicon 80MG PO SCH ×3 (00:13→14:06)
[2019-12-08] MEDS: Pepcid 20 MG VIAL IV SCH ×2 (00:14→09:30)
[2019-12-08] MEDS: Colace 100 MG PO SCH ×2 (00:14→09:23)
[2019-12-08] MEDS: solu-MEDROL 40 MG IV SCH ×2 (02:02→09:29)
[2019-12-08] MEDS ORDERED: TYLENOL 325 MG PO PRN (07:32)
[2019-12-08] MEDS ORDERED: Miralax Powder 17GM PACKET PO PRN (07:32)
[2019-12-08] MEDS: VENTOLIN COMMON CANISTER IH SCH ×2 (07:40→13:34)
[2019-12-08] MEDS ORDERED: MEDICATION INTERVENTION MC SCH (08:00)
[2019-12-08] MEDS ORDERED: NITRO-DUR 0.2 MG/HR TD SCH (08:00)
[2019-12-08] MEDS ORDERED: LASIX 20 MG PO SCH (10:00)
[2019-12-08] MEDS ORDERED: Vitamin C 500 MG PO SCH (10:00)
[2019-12-08] MEDS ORDERED: Ditropan XL 5 MG PO SCH (10:00)
[2019-12-08] MEDS ORDERED: TOLTERODINE TARTRATE 2 MG PO SCH (10:00)
[2019-12-08] MEDS ORDERED: MV CALCIUM MIN PO SCH (10:00)
[2019-12-08] MEDS ORDERED: FOLIC PO SCH (10:00)
[2019-12-08] MEDS ORDERED: SECTRAL 200 MG PO SCH (10:00)
[2019-12-08] MEDS ORDERED: FLUZONE HIGH-DOSE QUAD 2020-21 IM ONE (10:00)
[2019-12-08] MEDS ORDERED: THERAGRAN MULTIVITAMIN PO SCH (10:00)
[2019-12-08] MEDS ORDERED: ASCORBIC ACID PO SCH (10:00)
[2019-12-08] MEDS ORDERED: VITK PO SCH (10:00)
[2019-12-08] MEDS ORDERED: CLARITIN 10 MG PO SCH (10:00)
[2019-12-08] MEDS ORDERED: Protonix 40MG Tablet PO SCH (10:00)
[2019-12-08] MEDS ORDERED: CHOLECALCIFEROL 4000 UNIT PO SCH (10:00)
[2019-12-08] MEDS ORDERED: Flonase NASAL NS SCH (10:00)
[2019-12-08] MEDS ORDERED: VITAMIN D PO SCH (10:00)
[2019-12-08] MEDS ORDERED: IRON PO SCH (10:00)
[2019-12-08] MEDS ORDERED: Prozac 20 MG PO SCH (10:00)
[2019-12-08 12:06] VITALS: PULSE 80
[2019-12-08 13:41] VITALS: O2SAT 96
--- NOTE | 2019-12-08 13:51 | XRAY ---
Indication: Pain. Comparison: August 08, 2016. 3 view left knee obtained. Lateral view limited due to suboptimal positioning. Stable osteopenia, total knee arthroplasty, minimal vascular calcifications, and tiny anterior lower leg soft tissue calcified granuloma. No other bony, articular, or soft tissue abnormalities.
--- NOTE | 2019-12-08 13:54 | XRAY ---
Indication: Pain. Comparison: April 23, 2019. 3 view right knee obtained. Lateral view limited due to suboptimal positioning. Stable osteopenia, total knee arthroplasty, minimal scattered vascular calcifications, and tiny anterior lower leg soft tissue calcified granuloma. No other bony, articular, or soft tissue abnormalities.
--- NOTE | 2019-12-08 14:08 | PCM.DCORD ---
- Discharge Disposition: [facility] TO [facility] Condition: Good Prescriptions: New Prednisone 10 mg [Deltasone 10 mg] 10 mg PO BID 14 Days #20 tablet NS Albuterol Common Canister [Ventolin Common Canister] 2 puff IH TIDRT puff Continue Docusate Sodium 100 mg [Colace 100 MG] 100 mg PO BID #0 capsule Acebutolol 200 mg [Sectral 200 MG] 200 mg PO DAILY Furosemide 20 mg [Lasix 20 mg] 20 mg PO DAILY Tolterodine Tartrate [Detrol LA] 2 mg PO DAILY Pravastatin Sodium 20 mg PO HS Warfarin Sodium 1 mg [Coumadin 1 MG] 5 mg PO DAILY Alendronate Sodium 70 mg [Fosamax 70 MG] 1 tab PO WEEKLY Albuterol Common Canister [Ventolin Common Canister] 2 puff IH TID Calcifediol [Rayaldee] 30 mcg PO DAILY Polyethylene Glycol 3350 17 gm [Miralax Powder 17GM PACKET] 17 gm PO DAILY PRN PRN PRN Reason: Constipation Nitroglycerin 0.2 mg/Hr [Nitro-Dur 0.2 mg/Hr] 0.2 mg TD DAILY Fluticasone Propionate [Flonase NASAL] 1 spray NS DAILY Fexofenadine HCl 180 mg PO DAILY Fluoxetine HCl 40 mg PO DAILY Acetaminophen 325 mg [Tylenol 325 mg] 650 mg PO Q4H PRN PRN tablet PRN Reason: Pain And/Or Fever Mv,Calcium,Min/Iron/Folic/Vitk [Multi For Her Tablet] 1 ea PO DAILY Ascorbic Acid [Vitamin C with Shanita Hips] 1 ea PO DAILY Simethicone 80 mg [Mylicon 80MG] 1 ea PO BID PANTOPRAZOLE 40 mg Tablet [Protonix 40MG Tablet] 1 ea PO DAILY Zolpidem Tartrate 5 mg PO HS Cholecalciferol (Vitamin D3) [Vitamin D3] 4,000 unit PO DAILY Follow up with: SAPNA ELLER [Primary Care Provider] - 1 Week
[2019-12-08 16:05] VITALS: BP 118/20
[2019-12-08] MEDS: Coumadin 5 MG PO SCH (17:06)
[2019-12-09] MEDS ORDERED: Fosamax 70 MG PO SCH (06:00)
== END 2019-12-08 17:52 ==
LOC: ED 19:53 → MED SURG 12-07 00:52
PROVIDERS: ADMIT Family Medicine; ATTEND Family Medicine
DX: S80.02XA Contusion of left knee, initial encounter (principal); M25.561 Pain in right knee; M25.562 Pain in left knee; M70.61 Trochanteric bursitis, right hip; M47.816 Spondylosis without myelopathy or radiculopathy, lumbar region; I10 Essential (primary) hypertension; E78.5 Hyperlipidemia, unspecified; J44.9 Chronic obstructive pulmonary disease, unspecified; I48.91 Unspecified atrial fibrillation; R06.2 Wheezing; R09.02 Hypoxemia; Z86.73 Personal history of transient ischemic attack (TIA), and cerebral infarction without residual deficits; Z79.01 Long term (current) use of anticoagulants; Z79.899 Other long term (current) drug therapy; W19.XXXA Unspecified fall, initial encounter; Z86.711 Personal history of pulmonary embolism; Z96.653 Presence of artificial knee joint, bilateral; E78.00 Pure hypercholesterolemia, unspecified
CPT/HCPCS: 36000; 36415; 72131; 73562; 73700; 80053; 81001; 83605; 83880; 84134; 84484; 85025; 85610; 93005; 93268; 93970; 94640; 94762; 96374; 96375; 96376; 97161; 99285; G0008; G0378; P9612; 90662; J1170; J2270; J2405; J2920; A9270-GY